=== PATIENT | male | born 1955 | race Caucasian/White ===

== ENCOUNTER 2025-07-02 14:22 | Inpatient (IN) | payer OTHER, MEDICARE ==
[~2025-07-02] VITALS: Ht 182.9 cm; Wt 86.1 kg
[2025-07-02] MEDS: PANTOPRAZOLE 40 MG/10 ML VIAL INJ IV ONE (14:30)
[2025-07-02] MEDS: SODIUM CHLORIDE 0.9% 1,000 ML IV ONE (14:30)
--- NOTE | 2025-07-02 14:41 | ED.PDOC ---
GI ASSESSMENT HPI Comments 57-year-old male presents with a chief complaint of ALOC with GI bleed. Patient last known well time was last week on . Per EMS, patient lives at home with elderly mother and was last seen well last week. Per EMS, patient was visited yesterday by friends was able to speak and answer questions, but was in bed unable to get up. Patient was able to answer 2 questions for EMS, but he "shut down and was not able to respond to questions". Patient is altered i not responding to simple commands. Patient initial vital signs per EMS was heart rate 115 blood pressure 79/55. Patient received fluid resuscitation in route. On arrival his vital signs have improved.. Patient has black tarry stool on his person. EMS states that he has some type of cancer/lymphoma. Daughter at bedside now reports that patient receives immunotherapy. 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 REVIEW OF SYSTEMS: You of system is limited given the patient's altered level of consciousness CONSTITUTIONAL: Denies acute: fever, diaphoresis, chills, HEAD: Denies acute: headache, photophobia Eyes: Denies acute: Double vision, vision loss, eye pain, EARS: Denies acute: tinnitus, hearing loss, ear discharge, ear pain, THROAT: Denies acute: sore throat, swelling, difficulty swallowing , pain with swallowing, change in voice. NECK: Denies acute: neck pain, neck swelling, stiff neck. HEART: Denies acute : chest pain, palpitations, LUNGS: Denies acute: SOB, wheezing, cough, hemoptysis ABDOMEN: Denies acute: abdominal pain, Nausea, Vomiting, diarrhea, melena , hematemesis, hematochezia SKIN: Denies acute: rash, redness, lesions, itchiness. EXTREMITIES: Denies acute: calf pain, numbness, tingling, weakness, denies pain in extremity. Denies acute: Low back pain. Neuro: Denies acute: focal neurological deficit, motor or sensory focal neurological deficit, tremors, seizure like activity, confusion, dizziness, change in mental status, loss of bowel or bladder function, cauda equina like symptoms. : Denies acute: dysuria, hematuria, flank pain, increase in urinary frequency. PSYCH: Denies acute: hallucination, suicidal ideation, homicidal ideation. PHYSICAL EXAM: General: ----[id number]----acute distress, awake and alert. Head: normocephalic, atraumatic. Neck: supple, trachea is midline, no swelling. Throat: Normal phonation. Eyes:, no erythema, no proptosis, no icterus. Mild bilateral purulent discharge Heart: regular rate, regular rhythm, no significant murmur appreciated. Lungs: no apparent respiratory distress, No wheezing, no rhonchi, no crackles. No stridors Clear to auscultation bilaterally. Abdomen: non tender to palpation, non distended, soft, no guarding, no rebound, + bowel sounds. Noted dried up black stool on his abdominal wall Neuro: Altered, very weak, arousable to painful stimuli. Skin: no petechia, no purpura, no cyanosis, non-pale, not jaundice. Lower extremities: --no - Pitting edema no deformity, no focal swelling, no calf TTP. Makes eye contact. moves all four extremities. Face: no apparent facial droop. ED COURSE: DISCLAIMER: This medical document was created using an electronic medical record system with voice recognition software and computerized dictation system. Although this document has been carefully reviewed, there might still be some phonetic and typographical errors. Occasional wrong-word or "sound-alike" substitutions may have occurred due to the inherent limitations of voice recognition software. These areas are purely typographical due to imperfections of the software programs and do not reflect any compromise in the patient's medical care. Please read the chart carefully and recognize, using context, where these substitutions have occurred. Chief Complaint: General Weakness Time Seen by MD: 14:33 Reviewed Notes: Medications, Allergies Allergies: Coded Allergies: NO KNOWN ALLERGIES (Unverified , 07/02/25) Home Meds Reported Medications Hydrocortisone Base (CORTEF) 10 Mg Tab, 10 MG OR DAILY, TAB 07/03/25 Tamsulosin HCl (Tamsulosin Hydrochloride) 0.4 Mg Cap, 0.4 MG PO, CAP 07/03/25 Information Source: Emergency Med Personnel Mode of Arrival: EMS Past Medical History PAST MEDICAL HISTORY: Cancer, Unknown Surgical History: Unknown Family History Family History: Reviewed,noncontributory to illness Social History Smoker: Unknown Alcohol: Unknown Drugs: Unknown Lives In: Home Was a procedure done? Was a procedure done?: No GI differential Dx Differential Diagnosis: Other (DDX include CVA, TGA, cerebellar ischemia/infarct, carotid stenosis, Intracranial mass/infection/bleed, encephalopathy, electrolyte abnormality, thyroid disease, hydrocephalus, hypoglycemia, drug toxicity, cardiac arrhythmia, seizure, infection in the e lderly, Hyperammonemia., kidney failure., sepsis.. As far as the GI bleed, Diverticulitis, colitis, fistula, neoplasm, hemorrhoids, anal fissures, constipation, Crohn's disease, ulcerative colitis) X-Ray, Labs, Meds, VS Vital Signs Date Time Temp Pulse Resp B/P (MAP) Pulse Ox O2 Delivery O2 Flow Rate FiO2 07/02/25 19:50 89 16 96 Room Air* 0 21 07/02/25 18:00 97.8 87 18 83/55 (64) 95 97.8 07/02/25 16:08 97.8 87 25 93/44 (60) 96 97.8 07/02/25 16:08 Room Air* 0 21 07/02/25 16:00 99 07/02/25 14:25 98.7 95 16 93/56 96 98.7 Lab Test 07/02/25 17:45 07/02/25 16:44 07/02/25 15:40 07/02/25 14:38 Range/Units Lactic Acid Level 1.7 2.4 *H 0.4-2.0 mmol/L Troponin I High Sensitivity 557 *H 365 *H 299 *H </=54 ng/L Urine Color Yellow Yellow Urine Clarity Turbid H Clear Urine pH 5.0 5.0-9.0 Urine Specific [place] 1.022 1.001-1.035 Urine Protein 1+ H Negative Urine Ketones 1+ H Negative Urine Blood 1+ H Negative /uL Urine Nitrite Negative Negative Urine Bilirubin 1+ Negative Urine Urobilinogen 2 H Negative mg/dL Urine Leukocyte Esterase 3+ Negative /uL Urine RBC 25 0 - 3 /hpf Urine Microscopic WBC 101 H 0-3 /HPF Urine Squamous Epithelial Cells Few <5 /hpf Urine Bacteria Few H None Seen /hpf Urine Mucus Few None Seen Urine Yeast (Budding) Few None Seen /hpf Urine Glucose Trace Normal mg/dL White Blood Count 14.7 H 4.4-10.8 10^3/uL Red Blood Count 4.76 4.5-5.90 10^6/uL Hemoglobin 14.4 13.5-17.5 g/dL Hematocrit 42.2 41.0-53.0 % Mean Corpuscular Volume 88.7 80.0-100.0 fL Mean Corpuscular Hemoglobin 30.3 28.0-32.0 pg Mean Corpuscular Hemoglobin Concent 34.2 32.0-36.0 g/dL Red Cell Distribution Width 14.9 H 11.8-14.3 % Platelet Count 157 140-450 10^3/uL Mean Platelet Volume 8.0 6.9-10.8 fL Neutrophils (%) (Auto) 87.9 H 37.0-80.0 % Lymphocytes (%) (Auto) 5.0 L 10.0-50.0 % Monocytes (%) (Auto) 5.2 0.0-12.0 % Eosinophils (%) (Auto) 1.2 0.0-7.0 % Basophils (%) (Auto) 0.7 0.0-2.0 % Neutrophils # (Auto) 12.9 H 1.6-8.6 10 ^3/uL Lymphocytes # (Auto) 0.7 0.4-5.4 10 ^3/uL Monocytes # (Auto) 0.8 0-1.3 10 ^3/uL Eosinophils # (Auto) 0.2 0-0.8 10 ^3/uL Basophils # (Auto) 0.1 0-0.2 10 ^3/uL Nucleated Red Blood Cells 0.1 % Prothrombin Time 11.6 9.3-11.8 sec Prothrombin Time INR 1.11 0.9-1.15 Activated Partial Thromboplast Time 35.3 H 24.5-34.5 SEC Sodium Level 140 136-145 mmol/L Potassium Level 4.8 3.5-5.1 mmol/L Chloride Level 105 98-107 mmol/L Carbon Dioxide Level 19 L 20-31 mmol/L Anion Gap 16 H 5-15 Blood Urea Nitrogen 53 H 9-23 mg/dL Creatinine 5.79 H 0.700-1.30 mg/dL Glomerular Filtration Rate Calc 11 >90 mL/min BUN/Creatinine Ratio 9.2 L 10.0-20.0 Serum Glucose 74 74-106 mg/dL Calcium Level 8.4 L 8.7-10.4 mg/dL Total Bilirubin 2.4 H 0.2-1.0 mg/dL Aspartate Amino Transferase (AST) 23 13-40 U/L Alanine Aminotransferase (ALT) 23 7-40 U/L Alkaline Phosphatase 54 46-116 U/L Total Protein 5.8 5.7-8.2 g/dL Albumin 3.7 3.2-4.8 g/dL Lipase 34 12-53 U/L Microbiology Date/Time Source Procedure Growth Status 07/02/25 14:46 Blood Blood Culture - Preliminary NO GROWTH AFTER 48 HOURS OF INCUBATION. Resulted 07/02/25 14:38 Blood Blood Culture - Preliminary NO GROWTH AFTER 48 HOURS OF INCUBATION. Resulted [place] [address] Ph: [phone] DIAGNOSTIC IMAGING Diagnostic Imaging Report : [id number] Signed PATIENT: Brian Fontana ACCT: [id number] UNIT: [id number] : 03/19/1968 LOC: ER ROOM / BED: / AGE / SEX: 57 / M ADM STATUS: REG ER SERVICE 1451 ORDERING PHYSICIAN: RALPH LONGORIA DO PROCEDURE(s): HWOCT - HEAD WITHOUT CONTRAST REASON: [facility] ORDER NUMBER(s): [id number], ACCESSION NUMBER(s): [id number] CLINICAL HISTORY: ams TECHNIQUE: Helical scanning was performed of the head from the skull base to the vertex. Multiplanar reconstructions were performed. This exam was performed according to our departmental dose optimization program. Up-to-date CT equipment and radiation dose reduction techniques are utilized as appropriate. Ctdi 64.8 DLP 1534.8 COMPARISON: None FINDINGS: There is no evidence for acute intracranial hemorrhage, acute ischemic changes, mass, mass effect, or extra-axial fluid collection. There is no hydrocephalus or midline shift. There is no effacement of the cerebral sulci and basal subarachnoid cisterns. The camara-white matter differentiation is well maintained. There is an old right frontal lobe infarct. There is an old right parietal lobe infarct. The imaged paranasal sinuses are clear. IMPRESSION: No acute intracranial abnormality seen. 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 ATED BY: ROSY BARON MD DICTATED DATE/TIME: 07/02/251535 SIGNED BY: ROSY BARON MD SIGNED DATE/TIME: 07/02/25 153 PATIENT: Brian Fontana ACCT: [id number] UNIT: [id number] : 03/19/1968 LOC: ER ROOM / BED: / AGE / SEX: 57 / M ADM STATUS: REG ER SERVICE 34 ORDERING PHYSICIAN: RALPH LONGORIA DO PROCEDURE(s): CXRP - CHEST PORTABLE REASON: Melena, hypotension, ORDER NUMBER(s): [id number], ACCESSION NUMBER(s): [id number] CHEST RADIOGRAPH Indication: Melena, hypotension, Technique: Single frontal view of the chest was obtained COMPARISON: None FINDINGS: Lines and Tubes: None Lungs: Clear Pleura: No effusion. No pneumothorax. Cardiomediastinal contours: Unremarkable Bones: Unremarkable IMPRESSION: No acute disease. ATED BY: JOHNSON BERUMEN MD DICTATED DATE/TIME: 07/02/251520 SIGNED BY: JOHNSON BERUMEN MD SIGNED DATE/TIME: 07/02/25 152 PATIENT: Brian Fontana ACCT: [id number] UNIT: [id number] : 03/19/1968 LOC: ER ROOM / BED: / AGE / SEX: 57 / M ADM STATUS: REG ER SERVICE 34 ORDERING PHYSICIAN: RALPH LONGORIA DO PROCEDURE(s): ABPL - CT AB PEL WO CON-NO ORAL OR IV REASON: Melena, hypotension, ORDER NUMBER(s): [id number], ACCESSION NUMBER(s): [id number] CT CT AB PEL WO CON-NO ORAL OR IV INDICATION: Melena, hypotension, EXAM DATE: 07/02/2025 02:55 PM COMPARISON: None RADIATION DOSE: CTDIvol: 15 mGy, DLP: 975 mGy*cm PROCEDURE: Helical CT images were obtained of the abdomen and pelvis without IV contrast Sagittal and coronal reconstructions are provided. ORAL CONTRAST: None. ADDITIONAL IMAGES / REFORMATS: None All CT scans at this medical facility are performed using dose modulation techniques as appropriate to a performed exam including the following: Automated exposure control was utilized; adjustment of the MA and/or KV according to patient size; and use of iterative reconstruction technique. FINDINGS: LUNG BASE: Bibasilar atelectasis. LIVER: Normal. GALLBLADDER AND BILIARY TREE: No calcified gallstones. Normal caliber wall. No intra- or extrahepatic biliary ductal dilation. PANCREAS: Normal. SPLEEN: Normal. BOWEL: Normal. Normal appendix. ADRENALS: Normal. KIDNEYS AND URETER: Normal. BLADDER: Zavala in bladder. REPRODUCTIVE ORGANS: Normal. LYMPH NODES:No lymphadenopathy. PERITONEUM: No ascites or free air. No other fluid collection. VESSELS: Scattered atherosclerotic calcifications are noted. RETROPERITONEUM: Normal. ABDOMINAL WALL: Small bilateral fat containing inguinal hernia. BONES: Scattered osseous degenerative changes are noted. IMPRESSION: No acute intraabdominal abnormality. No hyperdense luminal material to suggest for bleed in bowel. ATED BY: BONIFACIO ROCHA MD DICTATED DATE/TIME: 07/02/25 154 SIGNED BY: BONIFACIO ROCHA MD SIGNED DATE/TIME: 07/02/25 1549 Time of 1ST Reevaluation: 15:03 Reevaluation 1ST: Unchanged Time of 2ND Reevaluation: 00:00 Reevaluation 2ND: Improved Patient Education/Counseling: Other (PATIENT ALTERED) Family Education/Counseling: Diagnosis, Treatment Comments MDM: patient presented with the above HPI.----altered mental status altered level of consciousness and reported GI bleed in the setting of cancer--workup was initiated. patient was found with the above mentioned diagnosis. the following medications were ordered: please refer to order lists of meds and tests obtained by myself Dr. Longoria. Patient ED course and VS have been stabilized. Patient has been reassessed in the ED and remained in a stable condition. Pertinent incidental findings were discussed with the patient and/or family. Patient/family voices understanding and is agreeable with plan. Patient has been observed in the ED adequate length of time to insure improvement/stability. Escalation of care considered: Consideration of escalation to observation or admission Sepsis workup was initiated. Aspirin was withheld given the setting of GI bleed. Patient was ADMITTED to the medicine team for further evaluation and treatment of their presentation. All the reports of any imaging studies that were ordered by myself were reviewed by myself. Departure 1 Departure Time of Disposition: 14:51 Impression: Primary Impression: Sepsis Additional Impressions: Altered mental status Acute renal failure Elevated troponin UTI (urinary tract infection) GI bleed Leukocytosis Disposition: ADMITTED INPATIENT Admit to: Tele Condition: Guarded Discharged With: Self Critical Care Note Critical Care Time?: Yes (1 hr-critical care time only) I personally scribed for RALPH LONGORIA DO ([email or web address]) on 07/02/25 at 14:41. Electronically submitted by David Montano ([email or web address]). I personally scribed for RALPH LONGORIA DO ([email or web address]) on 07/02/25 at 16:15. Electronically submitted by David Montano ([email or web address]). I personally scribed for RALPH LONGORIA DO ([email or web address]) on 07/02/25 at 17:32. Electronically submitted by David Montano ([email or web address]). I personally scribed for RALPH LONGORIA DO ([email or web address]) on 07/02/25 at 20:27. Electronically submitted by David Montano ([email or web address]). RALPH LONGORIA DO Jul 02, 2025 14:41
[2025-07-02] MEDS: VANCOMYCIN 1GM/200ML PM 200 ML IV ONE (14:45)
[2025-07-02] MEDS: LACTATED RINGER'S 2,350 ML IV ONE (14:45)
[2025-07-02 15:09] LABS: Hematocrit 42.2 % (41.0-53.0); Hemoglobin 14.4 g/dL (13.5-17.5); Mean Corpuscular Hemoglobin 30.3 pg (28.0-32.0); Mean Corpuscular Volume 88.7 fL (80.0-100.0); Nucleated Red Blood Cells % 0.1 %
--- NOTE | 2025-07-02 15:23 | DVH ---
CHEST RADIOGRAPH Indication: Melena, hypotension, Technique: Single frontal view of the chest was obtained COMPARISON: None FINDINGS: Lines and Tubes: None Lungs: Clear Pleura: No effusion. No pneumothorax. Cardiomediastinal contours: Unremarkable Bones: Unremarkable IMPRESSION: No acute disease.
[2025-07-02 15:26] LABS: Lactic Acid w/Reflex 2.4 mmol/L (0.4-2.0)
[2025-07-02 15:29] LABS: Alanine Aminotransferase 23 U/L (7-40); Albumin 3.7 g/dL (3.2-4.8); Alkaline Phosphatase 54 U/L (46-116); Anion Gap 16 (5-15); BUN/Creatinine Ratio 9.2 (10.0-20.0); Chloride 105 mmol/L (98-107); Glucose 74 mg/dL (74-106); Lipase 34 U/L (12-53); Potassium 4.8 mmol/L (3.5-5.1); Sodium 140 mmol/L (136-145); Total Protein 5.8 g/dL (5.7-8.2)
[2025-07-02 15:32] LABS: Bilirubin, Total 2.4 mg/dL (0.2-1.0); Blood Urea Nitrogen 53 mg/dL (9-23); Calcium 8.4 mg/dL (8.7-10.4); Carbon Dioxide 19 mmol/L (20-31)
--- NOTE | 2025-07-02 15:38 | DVH ---
CLINICAL HISTORY: ams TECHNIQUE: Helical scanning was performed of the head from the skull base to the vertex. Multiplanar reconstructions were performed. This exam was performed according to our departmental dose optimizat ion program. Up-to-date CT equipment and radiation dose reduction techniques are utilized as appropri ate. Ctdi 64.8 DLP 1534.8 COMPARISON: None FINDINGS: There is no evidence for acute intracranial hemorrhage, acute ischemic changes, mass, mass effect, or extra-axial fluid collection. There is no hydrocephalus or midline shift. There is no effacement of the cerebral sulci and basal subarachnoid cisterns. The camara-white matter differentiation is well margarita ntained. There is an old right frontal lobe infarct. There is an old right parietal lobe infarct. The imaged paranasal sinuses are clear. IMPRESSION: No acute intracranial abnormality seen. 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
[2025-07-02 15:40] LABS: INR 1.11 (0.9-1.15); Partial Thromboplastin Time 35.3 SEC (24.5-34.5); Prothrombin Time 11.6 sec (9.3-11.8)
--- NOTE | 2025-07-02 15:51 | DVH ---
CT CT AB PEL WO CON-NO ORAL OR IV INDICATION: Melena, hypotension, EXAM DATE: 07/02/2025 02:55 PM COMPARISON: None RADIATION DOSE: CTDIvol: 15 mGy, DLP: 975 mGy*cm PROCEDURE: Helical CT images were obtained of the abdomen and pelvis without IV contrast Sagittal and coronal reconstructions are provided. ORAL CONTRAST: None. ADDITIONAL IMAGES / REFORMATS: None All C T scans at this medical facility are performed using dose modulation techniques as appropriate to a p erformed exam including the following: Automated exposure control was utilized; adjustment of the MA and/or KV according to patient size; and use of iterative reconstruction technique. FINDINGS: LUNG BASE: Bibasilar atelectasis. LIVER: Normal. GALLBLADDER AND BILIARY TREE: No calcified gallstones. Normal caliber wall. No intra- or extrahepatic biliary ductal dilation. PANCREAS: Normal. SPLEEN: Normal. BOWEL: Normal. Normal appendix. ADRENALS: Normal. KIDNEYS AND URETER: Normal. BLADDER: Zavala in bladder. REPRODUCTIVE ORGANS: Normal. LYMPH NODES:No lymphadenopathy. PERITONEUM: No ascites or free air. No other fluid collection. VESSELS: Scattered atherosclerotic calcifications are noted. RETROPERITONEUM: Normal. ABDOMINAL WALL: Small bilateral fat containing inguinal hernia. BONES: Scattered osseous degenerative changes are noted. IMPRESSION: No acute intraabdominal abnormality. No hyperdense luminal material to suggest for bleed in bowel.
[2025-07-02] MEDS ORDERED: CEFEPIME 1GM/ 50ML 50 ML IV SCH (16:00)
[2025-07-02] MEDS: VANCOMYCIN 1GM/250ML KIT 250 ML IV ONE ×2 (16:30→21:41)
[2025-07-02 18:23] LABS: Urine Budding Yeast FEW /hpf (None Seen); Urine Protein, UAD 1+ (Negative)
[2025-07-02] MEDS: CEFEPIME 1GM/ 50ML 50 ML IV SCH (18:39)
[2025-07-02 19:50] VITALS: PULSE 89; RESP 16; O2SAT 96
[2025-07-02] MEDS ORDERED: VANCOMYCIN PER PHARMACY 0 MG IV SCH (20:00)
[2025-07-02] MEDS ORDERED: HYDROcodone-ACET 5/325MG TAB PO PRN (20:00)
[2025-07-02] MEDS ORDERED: ACETAMINOPHEN 325 MG TAB PO PRN (20:00)
[2025-07-02] MEDS ORDERED: NITROGLYCERIN 0.4 MG SL TAB SL PRN (20:00)
[2025-07-02] MEDS ORDERED: ONDANSETRON HCL 4 MG/2 ML VIAL IV PRN (20:00)
[2025-07-02] MEDS ORDERED: MORPHINE SULFATE INJ 2 MG/ml SYRG IV PRN (20:00)
[2025-07-02] MEDS ORDERED: DOCUSATE SOD 100 MG CAP PO PRN (20:00)
--- NOTE | 2025-07-02 21:00 | DVHHP2 ---
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 As reported by daughter, patient lives at home with elderly mother and was seen well last week. Patient was noted to be altered, unable to get up from bed, short down, unable to respond to questions, not responding to simple commands, getting worse that that EMS were called. When EMS arrived on the scene, the patient's heart rate was 115, blood pressure 79/55, and was given IV fluid resuscitation EN route to our facility ED. patient was seen and evaluated in the ED with black tarry stool, laboratory data shows elevated WBC 14.7, platelets 157, sodium 140, potassium 4.8, BUN 53, creatinine 5.79, glucose 74, calcium 8.4, lipase 34, total bilirubin 2.4, troponin 537, lactic acid 2.4 trending down to 1.7, blood pre ssure 83/55 trending up to 94/60, heart rate 86, temperature 97.8 F, O2 saturation 96% on oxygen. 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 Patient was started on IV antibiotic regimen vancomycin, please see medication orders section in the computer. On my assessment, daughter at bedside, patient remains altered, no diaphoresis, no shortness of breaths, no diarrhea, no vomiting, no fever, no chills. Patient was admitted for further evaluation and medical management. Past Medical History Metastatic Melanoma (Brain, Spine, & Lung), Hypocortisolism, Gilbert Syndrome Past Surgical History Denies all surgeries Family History Reviewed, noncontributory to the management of this case. Past Social History The patient lives at home, denies smoking, alcohol or illicit drugs abuse. Review of Systems Constitutional: Yes: Weakness; No: Fever, Chills, Sweats, Malaise, Other Eyes: No: Pain, Vision change, Conjunctivae inflammation, Eyelid inflammation, Other, Redness ENT: No: Ear pain, Ear discharge, Nose pain, Nose discharge, Nose congestion, Mouth pain, Mouth swelling, Throat pain, Throat swelling, Other Respiratory: No: Cough, Dry, Shortness of breath, SOB with excertion, Wheezing, Hemoptysis, Pleuritic Pain, Sputum, Wheezing, Other Cardiovascular: No: Chest Pain, Palpitations, Orthopnea, Paroxysmal Noc. Dyspnea, Edema, Lt Headedness, Other Gastrointestinal: Melena; No: Nausea, Vomiting, Abdominal Pain, Diarrhea, Constipation, Hematochezia, Other Genitourinary: No Dysuria, No Frequency, No Incontinence, No Hematuria, No Retention, No Other Musculoskeletal: No: other, neck pain, shoulder pain, arm pain, back pain, hand pain, leg pain, foot pain Skin: No: Rash, Lesions, Jaundice, Bruising, Other Neurological: Other (Altered level of consciousness); No: Weakness, Numbness, Incoordination, Change in speech, Confusion, Seizures Allergies: Coded Allergies: NO KNOWN ALLERGIES (Unverified , 07/02/25) Medications Current Medications Medications Dose Ordered Sig/Allyson Route Start Time Stop Time Status Last Admin Dose Admin Cefepime HCl 50 ml @ 12.5 mls/hr DAILY@1700 IV 07/02/25 17:00 07/02/25 18:39 12.5 MLS/HR Exam Vital Signs Vital Signs Date Time Temp Pulse Resp B/P (MAP) Pulse Ox O2 Delivery O2 Flow Rate FiO2 07/02/25 18:00 97.8 87 18 83/55 (64) 95 97.8 07/02/25 16:08 Room Air* 0 21 General Appearance: Alert, Cooperative, No acute distress, Other (Oriented x1) HEENT: Atraumatic, PERRLA, EOMI, Mucous membr. moist/pink Respiratory: Normal air movement Cardiovascular: Regular rate, Normal S1, Normal S2, No murmurs Abdominal: Normal bowel sounds, Soft, No tenderness, No hepatospenomegaly, No masses Extremities: No clubbing, No cyanosis, No edema, Normal pulses, No tenderness/swelling Skin: No rashes Neuro: Normal tone, Sensation intact, Cranial nerves 3-12 NL, Reflexes 2+, Other (Generalized weakness) Psych/Mental Status: Mood NL, Other (Altered mental status) Labs/Xrays Labs Test 07/02/25 17:45 07/02/25 16:44 07/02/25 14:38 Range/Units Lactic Acid Level 1.7 0.4-2.0 mmol/L Troponin I High Sensitivity 557 *H </=54 ng/L Urine Color Yellow Yellow Urine Clarity Turbid H Clear Urine pH 5.0 5.0-9.0 Urine Specific [place] 1.022 1.001-1.035 Urine Protein 1+ H Negative Urine Ketones 1+ H Negative Urine Blood 1+ H Negative /uL Urine Nitrite Negative Negative Urine Bilirubin 1+ Negative Urine Urobilinogen 2 H Negative mg/dL Urine Leukocyte Esterase 3+ Negative /uL Urine RBC 25 0 - 3 /hpf Urine Microscopic WBC 101 H 0-3 /HPF Urine Squamous Epithelial Cells Few <5 /hpf Urine Bacteria Few H None Seen /hpf Urine Mucus Few None Seen Urine Yeast (Budding) Few None Seen /hpf Urine Glucose Trace Normal mg/dL White Blood Count 14.7 H 4.4-10.8 10^3/uL Red Blood Count 4.76 4.5-5.90 10^6/uL Hemoglobin 14.4 13.5-17.5 g/dL Hematocrit 42.2 41.0-53.0 % Mean Corpuscular Volume 88.7 80.0-100.0 fL Mean Corpuscular Hemoglobin 30.3 28.0-32.0 pg Mean Corpuscular Hemoglobin Concent 34.2 32.0-36.0 g/dL Red Cell Distribution Width 14.9 H 11.8-14.3 % Platelet Count 157 140-450 10^3/uL Mean Platelet Volume 8.0 6.9-10.8 fL Neutrophils (%) (Auto) 87.9 H 37.0-80.0 % Lymphocytes (%) (Auto) 5.0 L 10.0-50.0 % Monocytes (%) (Auto) 5.2 0.0-12.0 % Eosinophils (%) (Auto) 1.2 0.0-7.0 % Basophils (%) (Auto) 0.7 0.0-2.0 % Neutrophils # (Auto) 12.9 H 1.6-8.6 10 ^3/uL Lymphocytes # (Auto) 0.7 0.4-5.4 10 ^3/uL Monocytes # (Auto) 0.8 0-1.3 10 ^3/uL Eosinophils # (Auto) 0.2 0-0.8 10 ^3/uL Basophils # (Auto) 0.1 0-0.2 10 ^3/uL Nucleated Red Blood Cells 0.1 % Prothrombin Time 11.6 9.3-11.8 sec Prothrombin Time INR 1.11 0.9-1.15 Activated Partial Thromboplast Time 35.3 H 24.5-34.5 SEC Sodium Level 140 136-145 mmol/L Potassium Level 4.8 3.5-5.1 mmol/L Chloride Level 105 98-107 mmol/L Carbon Dioxide Level 19 L 20-31 mmol/L Anion Gap 16 H 5-15 Blood Urea Nitrogen 53 H 9-23 mg/dL Creatinine 5.79 H 0.700-1.30 mg/dL Glomerular Filtration Rate Calc 11 >90 mL/min BUN/Creatinine Ratio 9.2 L 10.0-20.0 Serum Glucose 74 74-106 mg/dL Calcium Level 8.4 L 8.7-10.4 mg/dL Total Bilirubin 2.4 H 0.2-1.0 mg/dL Aspartate Amino Transferase (AST) 23 13-40 U/L Alanine Aminotransferase (ALT) 23 7-40 U/L Alkaline Phosphatase 54 46-116 U/L Total Protein 5.8 5.7-8.2 g/dL Albumin 3.7 3.2-4.8 g/dL Lipase 34 12-53 U/L PATIENT: Brian Fontana ACCT: [id number] UNIT: [id number] : 03/19/1968 LOC: ER ROOM / BED: / AGE / SEX: 57 / M ADM STATUS: REG ER SERVICE [id number] ORDERING PHYSICIAN: RALPH LONGORIA DO PROCEDURE(s): ABPL - CT AB PEL WO CON-NO ORAL OR IV REASON: Melena, hypotension, ORDER NUMBER(s): [id number], ACCESSION NUMBER(s): [id number] CT CT AB PEL WO CON-NO ORAL OR IV INDICATION: Melena, hypotension, EXAM DATE: 07/02/2025 02:55 PM COMPARISON: None RADIATION DOSE: CTDIvol: 15 mGy, DLP: 975 mGy*cm PROCEDURE: Helical CT images were obtained of the abdomen and pelvis without IV contrast Sagittal and coronal reconstructions are provided. ORAL CONTRAST: None. ADDITIONAL IMAGES / REFORMATS: None All CT scans at this medical facility are performed using dose modulation techniques as appropriate to a performed exam including the following: Automated exposure control was utilized; adjustment of the MA and/or KV according to patient size; and use of iterative reconstruction technique. FINDINGS: LUNG BASE: Bibasilar atelectasis. LIVER: Normal. GALLBLADDER AND BILIARY TREE: No calcified gallstones. Normal caliber wall. No intra- or extrahepatic biliary ductal dilation. PANCREAS: Normal. SPLEEN: Normal. BOWEL: Normal. Normal appendix. ADRENALS: Normal. KIDNEYS AND URETER: Normal. BLADDER: Zavala in bladder. REPRODUCTIVE ORGANS: Normal. LYMPH NODES:No lymphadenopathy. PERITONEUM: No ascites or free air. No other fluid collection. VESSELS: Scattered atherosclerotic calcifications are noted. RETROPERITONEUM: Normal. ABDOMINAL WALL: Small bilateral fat containing inguinal hernia. BONES: Scattered osseous degenerative changes are noted. IMPRESSION: No acute intraabdominal abnormality. No hyperdense luminal material to suggest for bleed in bowel. ORDERING PHYSICIAN: RALPH LONGORIA DO PROCEDURE(s): CXRP - CHEST PORTABLE REASON: Melena, hypotension, ORDER NUMBER(s): [id number], ACCESSION NUMBER(s): [id number] CHEST RADIOGRAPH Indication: Melena, hypotension, Technique: Single frontal view of the chest was obtained COMPARISON: None FINDINGS: Lines and Tubes: None Lungs: Clear Pleura: No effusion. No pneumothorax. Cardiomediastinal contours: Unremarkable Bones: Unremarkable IMPRESSION: No acute disease. ORDERING PHYSICIAN: RALPH LONGORIA DO PROCEDURE(s): HWOCT - HEAD WITHOUT CONTRAST REASON: ams ORDER NUMBER(s): [id number], ACCESSION NUMBER(s): [id number] CLINICAL HISTORY: ams TECHNIQUE: Helical scanning was performed of the head from the skull base to the vertex. Multiplanar reconstructions were performed. This exam was performed according to our departmental dose optimization program. Up-to-date CT equipment and radiation dose reduction techniques are utilized as appropriate. Ctdi 64.8 DLP 1534.8 COMPARISON: None FINDINGS: There is no evidence for acute intracranial hemorrhage, acute ischemic changes, mass, mass effect, or extra-axial fluid collection. There is no hydrocephalus or midline shift. There is no effacement of the cerebral sulci and basal subarachnoid cisterns. The camara-white matter differentiation is well maintained. There is an old right frontal lobe infarct. There is an old right parietal lobe infarct. The imaged paranasal sinuses are clear. IMPRESSION: No acute intracranial abnormality seen. 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 SEPSIS Sepsis Screen Date sepsis recognized/suspect: Jul 02, 2025 Time Sepsis recognized/suspect: 1500 Recent Procedure: No On Antibiotic Therapy: Yes Respiratory Rate >20: Yes Heart Rate >90: No Temp<36 C (96.8 F) or >38.3 C: No SBP <90 or MAP <65 mmHG: No New Acute Mental Status Change: Yes Is the patient on CPAP, BIPAP,: No Physician Orders [employer] Tech (07/02/25 ) Stool Occult Blood (07/02/25 14:24) Chest Portable (07/02/25 14:35) Electrocardigram (07/02/25 14:24) Ct Ab Pel Wo Con-No Oral Or Iv (07/02/25 14:35) Accucheck (07/02/25 14:42) Blood Culture (07/02/25 14:42) Notify Md If Map <65 Or Bp<90 (07/02/25 14:42) If Map<65 Start Vasopressor (07/02/25 14:42) Sepsis Reassesment After Fluid (07/02/25 15:42) Head Without Contrast (07/02/25 14:51) Cefepime 1gm/ 50ml (Maxipime 1gm/50ml) (07/02/25 17:00) *[facility] (07/02/25 19:54) Vancomycin Per Pharmacy (07/02/25 20:00) Famotidine Injection (Pepcid Injection) (07/02/25 22:00) Admit (07/02/25 19:54) Allergies (07/02/25 19:54) Code Status (07/02/25 19:54) Sodium Chloride Lock (Saline Lock Ns) (07/02/25 22:00) Oxygen Per Hour (07/02/25 19:54) Hydrocodone-Acet 5/325mg Tab ([place] 5/32 (07/02/25 20:00) Ondansetron Hcl (Zofran) (07/02/25 20:00) Docusate Sodium Capsule (Colace Capsule) (07/02/25 20:00) Fall Risk Precautions In Place QSHIFT (07/02/25 19:54) Complete Blood Count (07/03/25 04:00) Comprehensive Metabolic Panel (07/03/25 04:00) Cardiac Diet-2gna,Lofat,Lochol (07/03/25 Breakfast) Condition: Serious (07/02/25 19:54) Acetaminophen Tablet (Tylenol Tablet) (07/02/25 20:00) Maintain Bed Rest (07/02/25 19:54) Sequential Compression Device (07/02/25 ) Nitroglycerin Sublingual (Ntrostat Subli (07/02/25 20:00) Morphine Sulfate Injection (07/02/25 20:00) Stat Ekg For Chest Pain (07/02/25 19:54) Notify Md Of Changes From Base (07/02/25 19:54) Taper Operator For 24 Hours (07/02/25 19:54) Emergency Dysrhythmia Protocol (07/02/25 19:54) Rhythm Strips Once Every Shift (07/02/25 19:54) Oxygen By Nasal Cannula (07/02/25 19:54) Vital Signs Date Time Temp Pulse Resp B/P (MAP) Pulse Ox O2 Delivery O2 Flow Rate FiO2 07/02/25 18:00 97.8 87 18 83/55 (64) 95 97.8 07/02/25 16:08 97.8 87 25 93/44 (60) 96 97.8 07/02/25 16:08 Room Air* 0 21 07/02/25 16:00 99 07/02/25 14:25 98.7 95 16 93/56 96 98.7 Laboratory Tests Test 07/02/25 14:38 07/02/25 17:45 Lactic Acid Level 2.4 mmol/L (0.4-2.0) *H 1.7 mmol/L (0.4-2.0) White Blood Count 14.7 10^3/uL (4.4-10.8) H Medications Medications Dose Ordered Sig/Allyson Route Start Time Stop Time Status Last Admin Dose Admin Cefepime HCl 50 ml @ 12.5 mls/hr DAILY@1700 IV 07/02/25 17:00 07/02/25 18:39 12.5 MLS/HR Lactated Ringer's 2,350 ml @ 2,350 mls/hr ONCE ONCE IV 07/02/25 14:45 07/02/25 15:44 DC 07/02/25 14:45 2,350 MLS/HR Pantoprazole Sodium 40 mg ONCE ONCE IV 07/02/25 14:30 07/02/25 14:34 DC 07/02/25 14:30 40 MG Sodium Chloride 1,000 ml @ 1,000 mls/hr Q1H ONCE IV 07/02/25 14:30 07/02/25 15:29 DC 07/02/25 14:30 1,000 MLS/HR Vancomycin HCl 250 ml @ 250 mls/hr ONCE ONCE IV 07/02/25 16:00 07/02/25 16:59 DC 07/02/25 16:30 250 MLS/HR Assessment/Plan Assessment/Plan Sepsis, unspecified organism Urinary tract infection Altered mental status Generalized weakness Elevated troponin Gastrointestinal bleed Acute on chronic renal failure Plan 1. Admit to telemetry unit 2. Breathing treatment 3. Pain control management 4. IV antibiotic management 5. Management of fluids and electrolytes 6. Consultation for Nephrology 7. Diagnostic test head CT 8. DVT prophylaxis-on SCDs 9. Repeat labs CBC, CMP in a.m. 10. Home medication reviewed and reconciled 11. Continue with current medical management 12. Treatment plan discussed with patient/daughter and RN. Patient/daughter verbalized understanding. Plan discussed with: Patient, Daughter (At bedside), Other (RN) My Orders Orders - JOSE M ACHARYA DNP Procedure Category Date Status Time *[facility] CONS 07/02/25 Verified -[place] 19:54 Vancomycin Per PHA 07/02/25 Verified Pharmacy 20:00 Famotidine Injection PHA 07/02/25 Verified (Pepcid Injection) 22:00 Admit ADMIT 07/02/25 Verified 19:54 Allergies [facility] 07/02/25 Verified 19:54 Code Status CODE 07/02/25 Verified 19:54 Sodium Chloride Lock PHA 07/02/25 Verified (Saline Lock Ns) 22:00 Oxygen Per Hour RT 07/02/25 Verified 19:54 Hydrocodone-Acet PHA 07/02/25 Verified 5/325mg Tab ([place] 20:00 Ondansetron Hcl PHA 07/02/25 Verified (Zofran) 20:00 Docusate Sodium PHA 07/02/25 Verified Capsule (Colace 20:00 Fall Risk Precautions [facility] 07/02/[address] 19:54 Complete Blood Count LAB 07/03/25 Verified 04:00 Comprehensive LAB 07/03/25 Verified Metabolic Panel 04:00 Cardiac DIET 07/03/25 Verified Diet-2gna,Lofat,Lochol Breakfast Condition: Serious [facility] 07/02/25 Verified 19:54 Acetaminophen Tablet PHA 07/02/25 Verified (Tylenol Tablet) 20:00 Maintain Bed Rest [facility] 07/02/25 Verified 19:54 Sequential [facility] 07/02/25 Verified Compression Device Nitroglycerin [facility] 07/02/25 Verified Sublingual (Ntrostat 20:00 Morphine Sulfate [facility] 07/02/25 Verified Injection 20:00 Stat Ekg For Chest [facility] 07/02/25 Verified Pain 19:54 Notify Md Of Changes [facility] 07/02/25 Verified From Base 19:54 Taper Operator For [facility] 07/02/25 Verified 24 Hours 19:54 Emergency Dysrhythmia [facility] 07/02/25 Verified Protocol 19:54 Rhythm Strips Once [facility] 07/02/25 Verified Every Shift 19:54 Oxygen By Nasal RT 07/02/25 Verified Cannula 19:54 Problem List: (1) Sepsis, unspecified organism (2) Urinary tract infection (3) Altered mental status (4) Elevated troponin (5) Generalized weakness (6) Gastrointestinal bleed (7) Acute on chronic renal failure Date of Service: Jul 02, 2025 Billing Provider: JOSE M ACHARYA DNP Common Visit Codes: [id number] INP/OBS CARE (HIGH) JOSE M ACHARYA DNP Jul 02, 2025 21:00
[2025-07-02] MEDS: SODIUM CHLOR 0.9% PF (SALINE LOCK) 10ML VIAL/SYR IV SCH (21:41)
[2025-07-02] MEDS: FAMOTIDINE (10MG/ML) 2ML VL IV SCH (21:45)
[2025-07-03] VITALS (7 sets, daily range): BP systolic 101–119; BP diastolic 44–72; PULSE 59–78; RESP 16–19; TEMP 97.8–98.2; O2SAT 93–97
[2025-07-03 08:26] LABS: Hematocrit 37.4 % (41.0-53.0); Hemoglobin 13.0 g/dL (13.5-17.5); Mean Corpuscular Hemoglobin 30.8 pg (28.0-32.0); Mean Corpuscular Volume 88.8 fL (80.0-100.0); Nucleated Red Blood Cells % 0.1 %
[2025-07-03 08:35] LABS: Alanine Aminotransferase 17 U/L (7-40); Alkaline Phosphatase 47 U/L (46-116); Anion Gap 13 (5-15); BUN/Creatinine Ratio 11.5 (10.0-20.0); Potassium 3.7 mmol/L (3.5-5.1); Sodium 142 mmol/L (136-145)
[2025-07-03 08:37] LABS: Albumin 3.2 g/dL (3.2-4.8); Bilirubin, Total 1.7 mg/dL (0.2-1.0); Blood Urea Nitrogen 46 mg/dL (9-23); Calcium 8.2 mg/dL (8.7-10.4); Carbon Dioxide 19 mmol/L (20-31); Chloride 110 mmol/L (98-107); Glucose 71 mg/dL (74-106); Total Protein 5.0 g/dL (5.7-8.2)
--- NOTE | 2025-07-03 10:23 | MEDREC ---
[facility] Intervention Section I [facility] Intervention: Deescalate AB based on CS, Duplication of therapy Assessment of apprpriate abx f: UTI (Please consider D/C vancomycin as this is not appropriate treatment for UTI. Cefepime provides enough coverage for UTI) LANDY CHAVIRA [facility] RESIDENT Jul 03, 2025 10:23
--- NOTE | 2025-07-03 10:31 | DVHINCON2 ---
Date Seen: Jul 03, 2025 Referring Physician NADIYA Luna Reason for Consultation Elevated troponin History of Present Illness This is a 70-year-old male patient who presents to the emergency room with chief complaint of altered level of mentation. At the time of assessment, the patient is alert and oriented and able to answer all questions appropriately. He mentions that he does not fully recall how or why he came to the emergency room. Per provider documentation, it was noted that the patient appeared altered at home, prompting the patient's mother to call EMS. The patient was brought to the emergency room for further evaluation. Cardiology has been consulted at t his time for elevated troponin level. He denies any chest pain or cardiac symptoms. Initial twelve lead electrocardiogram reveals normal sinus rhythm without any significant ST segment changes. Initial troponin level of 299ng/L with up trend and current peak level at 557ng/L. Significant past medical history includes metastatic melanoma (with metastasis to the brain, spine, and lungs), and Gilbert syndrome. The patient reports that he is [facility]. Past Medical History Past medical history reviewed. No other significant than mentioned above. Past Surgical History Brain tumor removal Family History: Hypertension G8 MOTHER Family History Family history reviewed. Social History Denies the use of tobacco, alcohol or illicit drugs. Allergies: Coded Allergies: NO KNOWN ALLERGIES (Unverified , 07/02/25) Home Meds Home medications reviewed. Current Medications Current Medications Medications (Trade) Dose Ordered Sig/Allyson Route PRN Reason Start Time Stop Time Status Last Admin Cefepime HCl 50 ml @ 12.5 mls/hr DAILY@1600 IV 07/02/25 16:00 07/02/25 16:00 DC Cefepime HCl 50 ml @ 12.5 mls/hr DAILY@1700 IV 07/02/25 17:00 07/02/25 18:39 Vancomycin HCl 0 ml @ 0 mls/hr UD IV 07/02/25 20:00 Famotidine (Pepcid Injection) 20 mg Q48H IV 07/02/25 22:00 07/02/25 21:45 Sodium Chloride (Saline Lock Ns) 10 ml Q8HR IV 07/02/25 22:00 07/03/25 06:12 Acetaminophen/ Hydrocodone Bitart (Corbin 5/325MG Tab) 1 tab Q4HP PRN PO MODERATE PAIN (4-6 PAIN SCALE) 07/02/25 20:00 Ondansetron HCl (Zofran) 4 mg Q4HP PRN IV NAUSEA / VOMITING 07/02/25 20:00 Docusate Sodium (Colace Capsule) 100 mg BIDPRN PRN PO FOR CONSTIPATION 07/02/25 20:00 Acetaminophen (Tylenol Tablet) 650 mg Q6HP PRN PO PAIN SCALE 1-3 OR TEMP>100.4 07/02/25 20:00 Nitroglycerin (Ntrostat Sublingual) 0.4 mg Q5MINP PRN SL FOR CHEST PAIN 07/02/25 20:00 Morphine Sulfate 2 mg Q30M PRN IV FOR CHEST PAIN 07/02/25 20:00 Review of Systems Constitutional: No symptom reported Ears, Nose, & Throat: No symptom reported Eyes: No symptom reported Neurological: Altered level of mentation Pulmonary/Respiratory: No symptoms reported Cardiovascular: No symptom reported Gastrointestinal: No symptom reported Genitourinary: No symptom reported Musculoskeletal: No symptom reported Skin: No symptom reported Psychiatric: No symptom reported Endocrine: No symptom reported Hematologic/Lymphatic: No symptom reported Vital Signs Vital Signs Date Time Temp Pulse Resp B/P (MAP) Pulse Ox O2 Delivery O2 Flow Rate FiO2 07/03/25 09:47 98.2 76 18 114/44 (67) 97 98.2 07/02/25 19:50 Room Air* 0 21 Physical Exam General Appearance: Cooperative. Well-developed. Well-nourished. No acute distress. Pulmonary/Respiratory: Clear, bilateral breaths sounds. Cardiovascular/Chest: Regular rate and rhythm. Peripheral Pulses: 2+ Radial (R). 2+ Radial (L). 2+ Pedal (R). 2+ Pedal (L) Abdominal Exam: Normal bowel sounds. Ankle Exam: Negative ankle edema Lower extremities: Negative lower extremity edema Neuro/Mental Status: A/OX4, coherent. Thoughts/Psych: Normal thought pattern. Appropriate mood and affect. Good judgment and insight. Appearance: No acute distress. Skin Exam: Sutures to left upper lip. Skin warm and dry Labs/Diagnostic Data Labs Test 07/03/25 07:29 07/02/25 17:45 07/02/25 16:44 07/02/25 14:38 Range/Units White Blood Count 8.6 # 4.4-10.8 10^3/uL Red Blood Count 4.21 L 4.5-5.90 10^6/uL Hemoglobin 13.0 L 13.5-17.5 g/dL Hematocrit 37.4 #L 41.0-53.0 % Mean Corpuscular Volume 88.8 80.0-100.0 fL Mean Corpuscular Hemoglobin 30.8 28.0-32.0 pg Mean Corpuscular Hemoglobin Concent 34.7 32.0-36.0 g/dL Red Cell Distribution Width 14.8 H 11.8-14.3 % Platelet Count 126 L 140-450 10^3/uL Mean Platelet Volume 7.9 6.9-10.8 fL Neutrophils (%) (Auto) 83.0 H 37.0-80.0 % Lymphocytes (%) (Auto) 6.6 L 10.0-50.0 % Monocytes (%) (Auto) 6.4 0.0-12.0 % Eosinophils (%) (Auto) 3.6 0.0-7.0 % Basophils (%) (Auto) 0.4 0.0-2.0 % Neutrophils # (Auto) 7.1 1.6-8.6 10 ^3/uL Lymphocytes # (Auto) 0.6 0.4-5.4 10 ^3/uL Monocytes # (Auto) 0.6 0-1.3 10 ^3/uL Eosinophils # (Auto) 0.3 0-0.8 10 ^3/uL Basophils # (Auto) 0 0-0.2 10 ^3/uL Nucleated Red Blood Cells 0.1 % Sodium Level 142 136-145 mmol/L Potassium Level 3.7 3.5-5.1 mmol/L Chloride Level 110 H 98-107 mmol/L Carbon Dioxide Level 19 L 20-31 mmol/L Anion Gap 13 5-15 Blood Urea Nitrogen 46 H 9-23 mg/dL Creatinine 4.00 H 0.700-1.30 mg/dL Glomerular Filtration Rate Calc 15 >90 mL/min BUN/Creatinine Ratio 11.5 10.0-20.0 Serum Glucose 71 L 74-106 mg/dL Calcium Level 8.2 L 8.7-10.4 mg/dL Total Bilirubin 1.7 H 0.2-1.0 mg/dL Aspartate Amino Transferase (AST) 21 13-40 U/L Alanine Aminotransferase (ALT) 17 7-40 U/L Alkaline Phosphatase 47 46-116 U/L Total Protein 5.0 L 5.7-8.2 g/dL Albumin 3.2 3.2-4.8 g/dL Random Vancomycin Level 18.2 H 5-10 ug/mL Lactic Acid Level 1.7 0.4-2.0 mmol/L Troponin I High Sensitivity 557 *H </=54 ng/L Urine Color Yellow Yellow Urine Clarity Turbid H Clear Urine pH 5.0 5.0-9.0 Urine Specific [place] 1.022 1.001-1.035 Urine Protein 1+ H Negative Urine Ketones 1+ H Negative Urine Blood 1+ H Negative /uL Urine Nitrite Negative Negative Urine Bilirubin 1+ Negative Urine Urobilinogen 2 H Negative mg/dL Urine Leukocyte Esterase 3+ Negative /uL Urine RBC 25 0 - 3 /hpf Urine Microscopic WBC 101 H 0-3 /HPF Urine Squamous Epithelial Cells Few <5 /hpf Urine Bacteria Few H None Seen /hpf Urine Mucus Few None Seen Urine Yeast (Budding) Few None Seen /hpf Urine Glucose Trace Normal mg/dL Prothrombin Time 11.6 9.3-11.8 sec Prothrombin Time INR 1.11 0.9-1.15 Activated Partial Thromboplast Time 35.3 H 24.5-34.5 SEC Lipase 34 12-53 U/L Assessment Sepsis Urinary tract infection NSTEMI, likely type 2 secondary to above Rule out structural heart disease Metastatic melanoma Acute renal failure Borderline thrombocytopenia Plan/Recommendation We will continue with the following plan/recommendations (Dr. Morales): Patient seen and examined at bedside with . We will proceed with obtaining a transthoracic echocardiogram to evaluate cardiac function. The patient denies any cardiac symptoms at time of assessment. Elevated troponin level likely in the setting of sepsis and acute kidney injury. Consider single antiplatelet therapy (with stable platelet count). Continue with cardiac surveillance. In the setting of an unremarkable transthoracic echocardiogram, there is no further inpatient cardiac workup indicated at this time. Thank you for allowing us to care for this patient. Please call with any questions or concerns. Critical care time spent: 44 minutes This medical document was created using an electronic medical record system with voice recognition software and computerized dictation system. Although this document has been carefully reviewed, there might still be some phonetic and typ ographical errors. Occasional wrong-word or ``sound-alike substitutions may have occurred due to the inherent limitations of voice recognition software. These areas are purely typographical due to imperfections of the software programs and do not reflect any compromise in the patient's medical care. Please read the chart carefully and recognize, using context, where these subs titutions have occurred. Plan discussed with: Patient NYHA Physical activity limitations: NA Date of Service: Jul 03, 2025 Billing Provider: SIMEON EDWARDS Cardiology Common Codes: [id number] INP/OBS CARE (High) Cardiology Consultation Codes: [id number] CONSULT <45MIN SIMEON EDWARDS Jul 03, 2025 10:31
[2025-07-03 12:32] LABS: Magnesium 2.1 mg/dL (1.6-2.6)
[2025-07-03 12:33] LABS: Triglycerides 223.0 mg/dL (< 150)
[2025-07-03 12:34] LABS: Cholesterol 165.0 mg/dL (< 200)
[2025-07-03 12:36] LABS: HDL Cholesterol 19.0 mg/dL (40-59)
[2025-07-03] MEDS ORDERED: TAMS1CAP25 PO (14:47)
[2025-07-03] MEDS ORDERED: HYDR10T OR (14:53)
--- NOTE | 2025-07-03 15:42 | DVHPN2 ---
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 Patient is currently awake alert but not fully oriented. Changes from previous H/P or p: No Changes Eyes: No Pain, No Vision change, No Conjunctivae inflammation, No Eyelid inflammation, No Other, No Redness ENT: No Ear pain, No Ear discharge, No Nose pain, No Nose discharge, No Nose congestion, No Mouth pain, No Mouth swelling, No Throat pain, No Throat swelling, No Other Cardiovascular: No Chest Pain, No Palpitations, No Orthopnea, No Paroxysmal Noc. Dyspnea, No Edema, No Lt Headedness, No Other Respiratory: No Cough, No Dry, No Shortness of breath, No SOB with excertion, No Wheezing, No Hemoptysis, No Pleuritic Pain, No Sputum, No Other Gastrointestinal: No Nausea, No Vomiting, No Abdominal Pain, No Diarrhea, No Constipation; Melena; No Hematochezia, No Other Genitourinary: No Dysuria, No Frequency, No Incontinence, No Hematuria, No Retention, No Other Musculoskeletal: No other, No neck pain, No shoulder pain, No arm pain, No back pain, No hand pain, No leg pain, No foot pain Skin: No Rash, No Lesions, No Jaundice, No Bruising, No Other Objective Vitals Vital Signs Date Time Temp Pulse Resp B/P (MAP) Pulse Ox O2 Delivery O2 Flow Rate FiO2 07/03/25 13:00 98.0 59 19 101/64 (76) 95 98.0 07/03/25 11:41 Room Air* 0 21 Intake/Output Intake and Output 07/03/25 07:00 Intake Total 3900.0 ml Balance 3900.0 ml Intake IV Total 3900.0 ml Exam HEENT pupils are reactive Neck is supple CV is S1-S2 regular rate and rhythm Respiratory diminished breath sounds bases GI positive bowel sound Extremity no edema 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 minimally Medications Current Medications Medications Dose Ordered Sig/Allyson Route Start Time Stop Time Status Last Admin Dose Admin Cefepime HCl 50 ml @ 12.5 mls/hr DAILY@1700 IV 07/02/25 17:00 07/02/25 18:39 12.5 MLS/HR Vancomycin HCl 0 ml @ 0 mls/hr UD IV 07/02/25 20:00 Famotidine 20 mg Q48H IV 07/02/25 22:00 07/02/25 21:45 20 MG Sodium Chloride 10 ml Q8HR IV 07/02/25 22:00 07/03/25 13:55 10 ML Acetaminophen/ Hydrocodone Bitart 1 tab Q4HP PRN PO 07/02/25 20:00 Ondansetron HCl 4 mg Q4HP PRN IV 07/02/25 20:00 Docusate Sodium 100 mg BIDPRN PRN PO 07/02/25 20:00 Acetaminophen 650 mg Q6HP PRN PO 07/02/25 20:00 Nitroglycerin 0.4 mg Q5MINP PRN SL 07/02/25 20:00 Morphine Sulfate 2 mg Q30M PRN IV 07/02/25 20:00 Tamsulosin HCl 0.4 mg QPM PO 07/03/25 18:00 UNV Hydrocortisone 10 mg DAILY PO 07/04/25 10:00 UNV Laboratory Results Laboratory Tests 07/03/25 07:29 Chemistry Test 07/03/25 07:29 Albumin 3.2 g/dL (3.2-4.8) Calcium Level 8.2 mg/dL (8.7-10.4) L Magnesium Level 2.1 mg/dL (1.6-2.6) Total Protein 5.0 g/dL (5.7-8.2) L Lipid panel Test 07/03/25 07:29 Cholesterol Level 165 mg/dL (< 200) HDL Cholesterol 19 mg/dL (40-59) L Triglycerides Level 223 mg/dL (< 150) H LFT Test 07/03/25 07:29 Alanine Aminotransferase (ALT) 17 U/L (7-40) Alkaline Phosphatase 47 U/L (46-116) Aspartate Amino Transferase (AST) 21 U/L (13-40) Total Bilirubin 1.7 mg/dL (0.2-1.0) H HgA1c, TSH Test 07/03/25 07:29 Hemoglobin A1c 5.2 % A1C (<5.7) Thyroid Stimulating Hormone (TSH) 9.45 uIU/mL (0.55-4.78) H Urinalysis Test 07/02/25 16:44 Urine Color Yellow (Yellow) Urine Clarity Turbid (Clear) H Urine pH 5.0 (5.0-9.0) Urine Specific [place] 1.022 (1.001-1.035) Urine Protein 1+ (Negative) H Urine Ketones 1+ (Negative) H Urine Blood 1+ /uL (Negative) H Urine Nitrite Negative (Negative) Urine Bilirubin 1+ (Negative) Urine Urobilinogen 2 mg/dL (Negative) H Urine Leukocyte Esterase 3+ /uL (Negative) Urine RBC 25 /hpf (0 - 3) Urine Microscopic WBC 101 /HPF (0-3) H Urine Squamous Epithelial Cells Few /hpf (<5) Urine Bacteria Few /hpf (None Seen) H Urine Mucus Few (None Seen) Urine Yeast (Budding) Few /hpf (None Seen) Urine Glucose Trace mg/dL (Normal) Microbiology Microbiology Date/Time Source Procedure Growth Status 07/02/25 14:46 Blood Blood Culture - Preliminary NO GROWTH AFTER 24 HOURS OF INCUBATION. 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 Acute metabolic/septic encephalopathy 2. Sepsis suspected secondary to UTI 3. Complicated UTI 4. NSTEMI type 2 with elevated troponin 5. Acute kidney injury suspected secondary to vasomotor nephropathy, underlying CKD can not be excluded 6. Leukocytosis likely reactive 7. Lactic acidosis -close tele monitoring IV antibiotics follow up with the cultures, 2D echo cardiology consultation. -physical therapy evaluation and treatment. Plan discussed with: Patient, Other (Patient's bedside RN.) My Orders Orders - RONA BACA MD Procedure Category Date Status Time Tamsulosin PHA 07/03/25 Logged Hydrochloride (Flomax) 18:00 Hydrocortisone Tablet PHA 07/04/25 Logged (Cortef Tablet) 10:00 Date of Service: Jul 03, 2025 Billing Provider: RONA BACA MD Common Visit Codes: [id number] INP/OBS CARE(HIGH) RONA BACA MD Jul 03, 2025 15:42
[2025-07-03] MEDS: TAMSULOSIN HYDROCHLORIDE 0.4 MG CAP PO SCH (16:59)
[2025-07-03] MEDS: HYDROCORTISONE 10 MG TAB PO SCH (16:59)
--- NOTE | 2025-07-03 17:57 | DVHINCON2 ---
Date of service: Jul 03, 2025 Reason for Consultation mikey History of Present Illness 57-year-old male with past medical history of melanoma metastatic to the brain, spine, and lungs, currently on immunotherapy, hypocortisolism, and Gilbert syndrome per HPI presented to [facility] ED with complaint of alte red mental status not feeling patient a week ago he had excision of skin cancer lesions on the upper lip and he was asked to take antibiotics however patient did not take any Denies any complaints Past Surgical History H Allergies: Coded Allergies: NO KNOWN ALLERGIES (Unverified , 07/02/25) Home Meds Reported Medications Hydrocortisone Base (CORTEF) 10 Mg Tab, 10 MG OR DAILY, TAB 07/03/25 Tamsulosin HCl (Tamsulosin Hydrochloride) 0.4 Mg Cap, 0.4 MG PO, CAP 07/03/25 Current Medications Current Medications Medications (Trade) Dose Ordered Sig/Allyson Route PRN Reason Start Time Stop Time Status Last Admin Tamsulosin HCl (Flomax) 0.4 mg QPM PO 07/03/25 18:00 07/03/25 16:59 Hydrocortisone (Cortef Tablet) 10 mg DAILY PO 07/04/25 10:00 07/04/25 10:44 Sodium Chloride 1,000 ml @ 125 mls/hr Q8H IV 07/04/25 12:45 07/04/25 12:45 Heparin Sodium (Porcine) 5,000 units Q12HR SC 07/04/25 22:00 UNV Family History: Hypertension G8 MOTHER Review of Systems As documented in HPI H&P Exam Vital Signs/I&O Vital Sign Date Time Temp Pulse Resp B/P (MAP) Pulse Ox O2 Delivery O2 Flow Rate FiO2 07/04/25 13:00 98.0 61 15 87/60 (69) 94 98.0 07/04/25 08:00 Room Air* 0 21 Intake and Output 07/03/25 07/04/25 19:00 07:00 Output Total 500 ml Balance -500 ml Output Urine Total 500 ml Physical Exam General-not in any distress HEENT-normocephalic, no icterus, no pallor, neck supple Respiratory-fair air entry bilateral, no rhonchi, no wheeze [id number] heard, no murmurs appreciated Abdominal-soft, nontender, nondistended Musculoskeletal-no pedal edema, no calf tenderness Genitourinary-deferred Neuro-awake alert oriented x3, Psychiatric-not agitated, cooperative, Labs/Diagnostic Data Labs/Diagnostic Data Laboratory Tests Test 07/04/25 06:04 07/03/25 07:29 07/02/25 17:45 07/02/25 16:44 Range/Units Sodium Level 142 142 136-145 mmol/L Potassium Level 4.0 3.7 3.5-5.1 mmol/L Chloride Level 111 H 110 H 98-107 mmol/L Carbon Dioxide Level 17 L 19 L 20-31 mmol/L Anion Gap 14 13 5-15 Blood Urea Nitrogen 32 #H 46 H 9-23 mg/dL Creatinine 2.46 H 4.00 H 0.700-1.30 mg/dL Glomerular Filtration Rate Calc 28 15 >90 mL/min BUN/Creatinine Ratio 13.0 11.5 10.0-20.0 Serum Glucose 63 L 71 L 74-106 mg/dL Calcium Level 8.5 L 8.2 L 8.7-10.4 mg/dL Random Vancomycin Level 10.7 H 18.2 H 5-10 ug/mL White Blood Count 8.6 # 4.4-10.8 10^3/uL Red Blood Count 4.21 L 4.5-5.90 10^6/uL Hemoglobin 13.0 L 13.5-17.5 g/dL Hematocrit 37.4 #L 41.0-53.0 % Mean Corpuscular Volume 88.8 80.0-100.0 fL Mean Corpuscular Hemoglobin 30.8 28.0-32.0 pg Mean Corpuscular Hemoglobin Concent 34.7 32.0-36.0 g/dL Red Cell Distribution Width 14.8 H 11.8-14.3 % Platelet Count 126 L 140-450 10^3/uL Mean Platelet Volume 7.9 6.9-10.8 fL Neutrophils (%) (Auto) 83.0 H 37.0-80.0 % Lymphocytes (%) (Auto) 6.6 L 10.0-50.0 % Monocytes (%) (Auto) 6.4 0.0-12.0 % Eosinophils (%) (Auto) 3.6 0.0-7.0 % Basophils (%) (Auto) 0.4 0.0-2.0 % Neutrophils # (Auto) 7.1 1.6-8.6 10 ^3/uL Lymphocytes # (Auto) 0.6 0.4-5.4 10 ^3/uL Monocytes # (Auto) 0.6 0-1.3 10 ^3/uL Eosinophils # (Auto) 0.3 0-0.8 10 ^3/uL Basophils # (Auto) 0 0-0.2 10 ^3/uL Nucleated Red Blood Cells 0.1 % Hemoglobin A1c 5.2 <5.7 % A1C Magnesium Level 2.1 1.6-2.6 mg/dL Total Bilirubin 1.7 H 0.2-1.0 mg/dL Aspartate Amino Transferase (AST) 21 13-40 U/L Alanine Aminotransferase (ALT) 17 7-40 U/L Alkaline Phosphatase 47 46-116 U/L Total Protein 5.0 L 5.7-8.2 g/dL Albumin 3.2 3.2-4.8 g/dL Triglycerides Level 223 H < 150 mg/dL Cholesterol Level 165 < 200 mg/dL LDL Cholesterol 98 < 100 mg/dL HDL Cholesterol 19 L 40-59 mg/dL Thyroid Stimulating Hormone (TSH) 9.45 H 0.55-4.78 uIU/mL Lactic Acid Level 1.7 0.4-2.0 mmol/L Troponin I High Sensitivity 557 *H </=54 ng/L Urine Color Yellow Yellow Urine Clarity Turbid H Clear Urine pH 5.0 5.0-9.0 Urine Specific [place] 1.022 1.001-1.035 Urine Protein 1+ H Negative Urine Ketones 1+ H Negative Urine Blood 1+ H Negative /uL Urine Nitrite Negative Negative Urine Bilirubin 1+ Negative Urine Urobilinogen 2 H Negative mg/dL Urine Leukocyte Esterase 3+ Negative /uL Urine RBC 25 0 - 3 /hpf Urine Microscopic WBC 101 H 0-3 /HPF Urine Squamous Epithelial Cells Few <5 /hpf Urine Bacteria Few H None Seen /hpf Urine Mucus Few None Seen Urine Yeast (Budding) Few None Seen /hpf Urine Glucose Trace Normal mg/dL Test 07/02/25 15:40 07/02/25 14:38 Range/Units Troponin I High Sensitivity 365 *H 299 *H </=54 ng/L White Blood Count 14.7 H 4.4-10.8 10^3/uL Red Blood Count 4.76 4.5-5.90 10^6/uL Hemoglobin 14.4 13.5-17.5 g/dL Hematocrit 42.2 41.0-53.0 % Mean Corpuscular Volume 88.7 80.0-100.0 fL Mean Corpuscular Hemoglobin 30.3 28.0-32.0 pg Mean Corpuscular Hemoglobin Concent 34.2 32.0-36.0 g/dL Red Cell Distribution Width 14.9 H 11.8-14.3 % Platelet Count 157 140-450 10^3/uL Mean Platelet Volume 8.0 6.9-10.8 fL Neutrophils (%) (Auto) 87.9 H 37.0-80.0 % Lymphocytes (%) (Auto) 5.0 L 10.0-50.0 % Monocytes (%) (Auto) 5.2 0.0-12.0 % Eosinophils (%) (Auto) 1.2 0.0-7.0 % Basophils (%) (Auto) 0.7 0.0-2.0 % Neutrophils # (Auto) 12.9 H 1.6-8.6 10 ^3/uL Lymphocytes # (Auto) 0.7 0.4-5.4 10 ^3/uL Monocytes # (Auto) 0.8 0-1.3 10 ^3/uL Eosinophils # (Auto) 0.2 0-0.8 10 ^3/uL Basophils # (Auto) 0.1 0-0.2 10 ^3/uL Nucleated Red Blood Cells 0.1 % Prothrombin Time 11.6 9.3-11.8 sec Prothrombin Time INR 1.11 0.9-1.15 Activated Partial Thromboplast Time 35.3 H 24.5-34.5 SEC Sodium Level 140 136-145 mmol/L Potassium Level 4.8 3.5-5.1 mmol/L Chloride Level 105 98-107 mmol/L Carbon Dioxide Level 19 L 20-31 mmol/L Anion Gap 16 H 5-15 Blood Urea Nitrogen 53 H 9-23 mg/dL Creatinine 5.79 H 0.700-1.30 mg/dL Glomerular Filtration Rate Calc 11 >90 mL/min BUN/Creatinine Ratio 9.2 L 10.0-20.0 Serum Glucose 74 74-106 mg/dL Lactic Acid Level 2.4 *H 0.4-2.0 mmol/L Calcium Level 8.4 L 8.7-10.4 mg/dL Total Bilirubin 2.4 H 0.2-1.0 mg/dL Aspartate Amino Transferase (AST) 23 13-40 U/L Alanine Aminotransferase (ALT) 23 7-40 U/L Alkaline Phosphatase 54 46-116 U/L Total Protein 5.8 5.7-8.2 g/dL Albumin 3.7 3.2-4.8 g/dL Lipase 34 12-53 U/L Assessment Acute kidney injury hemodynamic mediated etiology secondary to hypotension Metastatic melanoma on immunotherapy Rule out sepsis Recommendations IV fluids as ordered NS Renal function better since admission Follow closely Plan discussed with: Patient ESTELA HARRELL MD Jul 03, 2025 17:57
[2025-07-04] VITALS (7 sets, daily range): BP systolic 87–123; BP diastolic 53–88; PULSE 59–68; RESP 15–17; TEMP 97.4–98; O2SAT 93–96
[2025-07-04] MEDS: HYDROCORTISONE 10 MG TAB PO SCH (10:44)
[2025-07-04 11:29] LABS: Chloride 111 mmol/L (98-107); Potassium 4.0 mmol/L (3.5-5.1); Sodium 142 mmol/L (136-145)
[2025-07-04 11:30] LABS: Anion Gap 14 (5-15)
[2025-07-04 11:31] LABS: Calcium 8.5 mg/dL (8.7-10.4); Carbon Dioxide 17 mmol/L (20-31)
[2025-07-04 11:35] LABS: BUN/Creatinine Ratio 13.0 (10.0-20.0)
[2025-07-04 11:39] LABS: Blood Urea Nitrogen 32 mg/dL (9-23); Glucose 63 mg/dL (74-106)
[2025-07-04] MEDS: VANCOMYCIN 750MG KIT 100 ML IV ONE (11:39)
[2025-07-04] MEDS: SODIUM CHLORIDE 0.9% 1,000 ML IV ONE (11:39)
[2025-07-04] MEDS: SODIUM CHLORIDE 0.9% 1,000 ML IV SCH (12:45)
--- NOTE | 2025-07-04 14:00 | DVHSR ---
APPROVED REPORT EXAM: Two-dimensional and M-mode echocardiogram with Doppler and color Doppler. Blood Pressure: 114/44 mmHg INDICATION evaluate cardiac function RISK FACTORS Obesity: Height: 6'0, Weight: 264 DIMENSIONS LVDd5.3 (3.8-5.7cm)LA (2D)4.1 (1.9-4.0cm)Aortic Root3.7 (2.0-3.7cm) LVDs3.7 (2.5-4.0cm)LA (MM) (1.9-4.0cm)Aortic Cusp Exc1.9 (1.5-2.0cm) EF (%) 55.0 (55-70%)Rt. Atrium3.4 (1.9-4.0cm)Asc. Aorta3.7 cm IVSd0.8 (0.7-1.1cm)RV (D)3.9 (1.8-2.4cm) PWd0.8 (0.7-1.1cm) Mitral Valve MitralMitral Stenosis E wave0.62m/sMV Mean GR.mmHg A wave0.78m/sMV Peak GR.mmHg E/A ratio0.82D MVAcm2 DECEL [id number] 1/2 Timems Aortic Valve Aortic ValveAortic Stenosis V10.84m/Larry Mean GR.3mmHg V21.06m/Larry Peak GR.4mmHg LVOT Diameter2.5 (1.8-2.4cm)Doppler AVA3.89cm2 Pulmonic Valve V20.83m/s Tricuspid Valve TR Velocity2.22m/s [id number] Other Information Technically limited study due to patient position. Conclusion Left ventricular is normal size Left ventricular systolic function is low normal Ejection fraction is estimated at 50% Aortic valve is sclerotic without evidence of stenosis Aortic root is mildly dilated There is no pericardial effusion
--- NOTE | 2025-07-04 16:49 | DVHPN2 ---
Subjective Patient is feeling much better, more awake alert today. Start normal saline at 100 mL/hour. Changes from previous H/P or p: No Changes Eyes: No Pain, No Vision change, No Conjunctivae inflammation, No Eyelid inflammation, No Other, No Redness ENT: No Ear pain, No Ear discharge, No Nose pain, No Nose discharge, No Nose congestion, No Mouth pain, No Mouth swelling, No Throat pain, No Throat swelling, No Other Cardiovascular: No Chest Pain, No Palpitations, No Orthopnea, No Paroxysmal Noc. Dyspnea, No Edema, No Lt Headedness, No Other Respiratory: No Cough, No Dry, No Shortness of breath, No SOB with excertion, No Wheezing, No Hemoptysis, No Pleuritic Pain, No Sputum, No Other Gastrointestinal: No Nausea, No Vomiting, No Abdominal Pain, No Diarrhea, No Constipation; Melena; No Hematochezia, No Other Genitourinary: No Dysuria, No Frequency, No Incontinence, No Hematuria, No Retention, No Other Musculoskeletal: No other, No neck pain, No shoulder pain, No arm pain, No back pain, No hand pain, No leg pain, No foot pain Skin: No Rash, No Lesions, No Jaundice, No Bruising, No Other Objective Vitals Vital Signs Date Time Temp Pulse Resp B/P (MAP) Pulse Ox O2 Delivery O2 Flow Rate FiO2 07/04/25 13:00 98.0 61 15 87/60 (69) 94 98.0 07/04/25 08:00 Room Air* 0 21 Intake/Output Intake and Output 07/04/25 07:00 Output Total 500 ml Balance -500 ml Output Urine Total 500 ml Exam HEENT pupils are reactive Neck is supple CV is S1-S2 regular rate and rhythm Respiratory diminished breath sounds bases GI positive bowel sound Extremity no edema [employer] patient is following commands minimally Medications Current Medications Medications Dose Ordered Sig/Allyson Route Start Time Stop Time Status Last Admin Dose Admin Cefepime HCl 50 ml @ 12.5 mls/hr DAILY@1700 IV 07/02/25 17:00 07/03/25 16:59 12.5 MLS/HR Vancomycin HCl 0 ml @ 0 mls/hr UD IV 07/02/25 20:00 Famotidine 20 mg Q48H IV 07/02/25 22:00 07/02/25 21:45 20 MG Sodium Chloride 10 ml Q8HR IV 07/02/25 22:00 07/04/25 14:17 10 ML Acetaminophen/ Hydrocodone Bitart 1 tab Q4HP PRN PO 07/02/25 20:00 Ondansetron HCl 4 mg Q4HP PRN IV 07/02/25 20:00 Docusate Sodium 100 mg BIDPRN PRN PO 07/02/25 20:00 Acetaminophen 650 mg Q6HP PRN PO 07/02/25 20:00 Nitroglycerin 0.4 mg Q5MINP PRN SL 07/02/25 20:00 Morphine Sulfate 2 mg Q30M PRN IV 07/02/25 20:00 Tamsulosin HCl 0.4 mg QPM PO 07/03/25 18:00 07/03/25 16:59 0.4 MG Hydrocortisone 10 mg DAILY PO 07/04/25 10:00 07/04/25 10:44 10 MG Hydrocortisone 5 mg Q24H PO 07/03/25 16:00 07/03/25 16:59 5 MG Sodium Chloride 1,000 ml @ 125 mls/hr Q8H IV 07/04/25 12:45 07/04/25 12:45 125 MLS/HR Laboratory Results Laboratory Tests 07/03/25 07:29 07/04/25 06:04 Chemistry Test 07/04/25 06:04 Calcium Level 8.5 mg/dL (8.7-10.4) L Urinalysis Test 07/02/25 16:44 Urine Color Yellow (Yellow) Urine Clarity Turbid (Clear) H Urine pH 5.0 (5.0-9.0) Urine Specific [place] 1.022 (1.001-1.035) Urine Protein 1+ (Negative) H Urine Ketones 1+ (Negative) H Urine Blood 1+ /uL (Negative) H Urine Nitrite Negative (Negative) Urine Bilirubin 1+ (Negative) Urine Urobilinogen 2 mg/dL (Negative) H Urine Leukocyte Esterase 3+ /uL (Negative) Urine RBC 25 /hpf (0 - 3) Urine Microscopic WBC 101 /HPF (0-3) H Urine Squamous Epithelial Cells Few /hpf (<5) Urine Bacteria Few /hpf (None Seen) H Urine Mucus Few (None Seen) Urine Yeast (Budding) Few /hpf (None Seen) Urine Glucose Trace mg/dL (Normal) Microbiology Microbiology Date/Time Source Procedure Growth Status 07/02/25 14:46 Blood Blood Culture - Preliminary NO GROWTH AFTER 48 HOURS OF INCUBATION. 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 Acute metabolic/septic encephalopathy 2. Sepsis suspected secondary to UTI 3. Complicated UTI 4. NSTEMI type 2 with elevated troponin 5. Acute kidney injury suspected secondary to vasomotor nephropathy, underlying CKD can not be excluded 6. Leukocytosis likely reactive 7. Lactic acidosis 8. Metabolic acidosis -IV fluids -close tele monitoring IV antibiotics follow up with the cultures, 2D echo cardiology consultation. -physical therapy evaluation and treatment. Plan discussed with: Patient My Orders Orders - RONA BACA MD Procedure Category Date Status Time Sodium Chloride 0.9% PHA 07/04/25 In Process 12:45 Date of Service: Jul 04, 2025 Billing Provider: RONA BACA MD Common Visit Codes: [id number] INP/OBS CARE(MOD) RONA BACA MD Jul 04, 2025 16:49
--- NOTE | 2025-07-04 16:54 | DVHPN2 ---
Progress Note Date Seen: Jul 04, 2025 Medical Necessity Reason Pt with a Central, PICC or Fol: Yes The following are medically ne: Martin Catheter Subjective Patient reports: No new complaints, Feels better Review of Systems: HEENT:Normal, CVS:Normal, RESPIRATORY:Normal, GI:Normal, :Normal, MSK:Normal, NEURO:Normal Objective vital signs Vital Sign Date Time Temp Pulse Resp B/P (MAP) Pulse Ox O2 Delivery O2 Flow Rate FiO2 07/04/25 13:00 98.0 61 15 87/60 (69) 94 98.0 07/04/25 08:00 Room Air* 0 21 Total Intake and Output 07/03/25 07/03/25 07/04/25 15:00 23:00 07:00 Output Total 500 ml Balance -500 ml medications Current Medications Medications Dose Ordered Sig/Allyson Route Start Time Stop Time Status Last Admin Dose Admin Cefepime HCl 50 ml @ 12.5 mls/hr DAILY@1700 IV 07/02/25 17:00 07/03/25 16:59 Vancomycin HCl 0 ml @ 0 mls/hr UD IV 07/02/25 20:00 Famotidine 20 mg Q48H IV 07/02/25 22:00 07/02/25 21:45 Sodium Chloride 10 ml Q8HR IV 07/02/25 22:00 07/04/25 14:17 Acetaminophen/ Hydrocodone Bitart 1 tab Q4HP PRN PO 07/02/25 20:00 Ondansetron HCl 4 mg Q4HP PRN IV 07/02/25 20:00 Docusate Sodium 100 mg BIDPRN PRN PO 07/02/25 20:00 Acetaminophen 650 mg Q6HP PRN PO 07/02/25 20:00 Nitroglycerin 0.4 mg Q5MINP PRN SL 07/02/25 20:00 Morphine Sulfate 2 mg Q30M PRN IV 07/02/25 20:00 Tamsulosin HCl 0.4 mg QPM PO 07/03/25 18:00 07/03/25 16:59 Hydrocortisone 10 mg DAILY PO 07/04/25 10:00 07/04/25 10:44 Hydrocortisone 5 mg Q24H PO 07/03/25 16:00 07/03/25 16:59 Sodium Chloride 1,000 ml @ 125 mls/hr Q8H IV 07/04/25 12:45 07/04/25 12:45 Heparin Sodium (Porcine) 5,000 units Q12HR SC 07/04/25 22:00 UNV Examination: GENERAL:Abnormal, SKIN:Abnormal laboratory and microbiology Laboratory Tests 07/04/25 06:04 07/03/25 07:29 Test 07/04/25 06:04 Range/Units Serum Glucose 63 L 74-106 mg/dL Microbiology Date/Time Source Procedure Growth Status 07/02/25 14:46 Blood Blood Culture - Preliminary NO GROWTH AFTER 48 HOURS OF INCUBATION. Resulted Problem List/Assessment/Plan Problem List/Assessment/Plan Acute kidney injury hemodynamic mediated etiology secondary to hypotension Metastatic melanoma on immunotherapy Rule out sepsis Recommendations IV fluids as ordered NS Renal function better since admission Follow closely has martin Plan discussed with: Patient My Orders My Orders Orders - ESTELA HARRELL MD Procedure Category Date Status Time Basic Metabolic Panel LAB 07/05/25 Verified 05:00 Basic Metabolic Panel LAB 07/06/25 Verified 05:00 Basic Metabolic Panel LAB 07/07/25 Verified 05:00 Basic Metabolic Panel LAB 07/08/25 Verified 05:00 Basic Metabolic Panel LAB 07/09/25 Verified 05:00 Basic Metabolic Panel LAB 07/10/25 Verified 05:00 Basic Metabolic Panel LAB 07/11/25 Verified 05:00 ESTELA HARRELL MD Jul 04, 2025 16:54
[2025-07-04] MEDS: HEPARIN SODIUM (PORCINE) 5000 UNITS/ML 1ML VIAL SC SCH (21:08)
[2025-07-05] VITALS (7 sets, daily range): BP systolic 116–134; BP diastolic 80–85; PULSE 55–76; RESP 16–18; TEMP 97.5–98.5; O2SAT 94–97
[2025-07-05 08:16] LABS: Anion Gap 10 (5-15); Carbon Dioxide 21 mmol/L (20-31); Potassium 3.9 mmol/L (3.5-5.1); Sodium 144 mmol/L (136-145)
[2025-07-05 08:22] LABS: BUN/Creatinine Ratio 17.6 (10.0-20.0); Calcium 8.4 mg/dL (8.7-10.4); Chloride 113 mmol/L (98-107)
[2025-07-05 08:23] LABS: Blood Urea Nitrogen 26 mg/dL (9-23); Glucose 73 mg/dL (74-106)
--- NOTE | 2025-07-05 10:04 | DVHPN2 ---
Progress Note Date Seen: Jul 05, 2025 Medical Necessity Reason Pt with a Central, PICC or Fol: Yes The following are medically ne: Z[place] Catheter Subjective Patient reports: Other (weak) Review of Systems: HEENT:Normal, CVS:Normal, RESPIRATORY:Normal, GI:Normal, :Normal, MSK:Normal, NEURO:Normal Objective vital signs Vital Sign Date Time Temp Pulse Resp B/P (MAP) Pulse Ox O2 Delivery O2 Flow Rate FiO2 07/05/25 08:25 98.5 56 16 128/85 (99) 96 98.5 07/05/25 08:00 Room Air* 0 21 Total Intake and Output 07/04/25 07/04/25 07/05/25 15:00 23:00 07:00 Intake Total 100 ml 575 ml Balance 100 ml 575 ml medications Current Medications Medications Dose Ordered Sig/Allyson Route Start Time Stop Time Status Last Admin Dose Admin Cefepime HCl 50 ml @ 12.5 mls/hr DAILY@1700 IV 07/02/25 17:00 07/04/25 17:28 12.5 MLS/HR Vancomycin HCl 0 ml @ 0 mls/hr UD IV 07/02/25 20:00 Famotidine 20 mg Q48H IV 07/02/25 22:00 07/04/25 21:02 20 MG Sodium Chloride 10 ml Q8HR IV 07/02/25 22:00 07/05/25 05:55 10 ML Acetaminophen/ Hydrocodone Bitart 1 tab Q4HP PRN PO 07/02/25 20:00 Ondansetron HCl 4 mg Q4HP PRN IV 07/02/25 20:00 Docusate Sodium 100 mg BIDPRN PRN PO 07/02/25 20:00 Acetaminophen 650 mg Q6HP PRN PO 07/02/25 20:00 Nitroglycerin 0.4 mg Q5MINP PRN SL 07/02/25 20:00 Morphine Sulfate 2 mg Q30M PRN IV 07/02/25 20:00 Tamsulosin HCl 0.4 mg QPM PO 07/03/25 18:00 07/04/25 17:40 0.4 MG Hydrocortisone 10 mg DAILY PO 07/04/25 10:00 07/04/25 10:44 10 MG Hydrocortisone 5 mg Q24H PO 07/03/25 16:00 07/04/25 17:28 5 MG Sodium Chloride 1,000 ml @ 125 mls/hr Q8H IV 07/04/25 12:45 07/04/25 23:21 125 MLS/HR Heparin Sodium (Porcine) 5,000 units Q12HR SC 07/04/25 22:00 07/04/25 21:08 5,000 UNITS laboratory and microbiology Laboratory Tests 07/05/25 06:28 07/03/25 07:29 Test 07/05/25 06:28 Range/Units Serum Glucose 73 L 74-106 mg/dL Microbiology Date/Time Source Procedure Growth Status 07/02/25 14:46 Blood Blood Culture - Preliminary NO GROWTH AFTER 48 HOURS OF INCUBATION. Resulted Problem List/Assessment/Plan Problem List/Assessment/Plan Acute kidney injury hemodynamic mediated etiology secondary to hypotension Metastatic melanoma on immunotherapy Rule out sepsis Recommendations IV fluids as ordered NS Renal function better since admission Follow closely ct abd-no hydro Plan discussed with: Patient My Orders My Orders Orders - ESTELA HARRELL MD Procedure Category Date Status Time Basic Metabolic Panel LAB 07/06/25 Verified 05:00 Basic Metabolic Panel LAB 07/07/25 Verified 05:00 Basic Metabolic Panel LAB 07/08/25 Verified 05:00 Basic Metabolic Panel LAB 07/09/25 Verified 05:00 Basic Metabolic Panel LAB 07/10/25 Verified 05:00 Basic Metabolic Panel LAB 07/11/25 Verified 05:00 ESTELA HARRELL MD Jul 05, 2025 10:04
[2025-07-05] MEDS ORDERED: CEFD300C2 PO (15:49)
--- NOTE | 2025-07-05 15:50 | DVHDS2 ---
Discharge Summary Date of Admission Jul 02, 2025 at 19:54 Date of Discharge: Jul 05, 2025 Labs/Diagnostic Data: Laboratory Results Test 07/05/25 06:28 07/03/25 07:29 07/02/25 17:45 07/02/25 16:44 Sodium Level 144 mmol/L (136-145) Potassium Level 3.9 mmol/L (3.5-5.1) Chloride Level 113 mmol/L (98-107) Carbon Dioxide Level 21 mmol/L (20-31) Anion Gap 10 (5-15) Blood Urea Nitrogen 26 mg/dL (9-23) Creatinine 1.48 mg/dL (0.700-1.30) Glomerular Filtration Rate Calc 51 mL/min (>90) BUN/Creatinine Ratio 17.6 (10.0-20.0) Serum Glucose 73 mg/dL (74-106) Calcium Level 8.4 mg/dL (8.7-10.4) Random Vancomycin Level 10.4 ug/mL (5-10) White Blood Count 8.6 10^3/uL (4.4-10.8) Red Blood Count 4.21 10^6/uL (4.5-5.90) Hemoglobin 13.0 g/dL (13.5-17.5) Hematocrit 37.4 % (41.0-53.0) Mean Corpuscular Volume 88.8 fL (80.0-100.0) Mean Corpuscular Hemoglobin 30.8 pg (28.0-32.0) Mean Corpuscular Hemoglobin Concent 34.7 g/dL (32.0-36.0) Red Cell Distribution Width 14.8 % (11.8-14.3) Platelet Count 126 10^3/uL (140-450) Mean Platelet Volume 7.9 fL (6.9-10.8) Neutrophils (%) (Auto) 83.0 % (37.0-80.0) Lymphocytes (%) (Auto) 6.6 % (10.0-50.0) Monocytes (%) (Auto) 6.4 % (0.0-12.0) Eosinophils (%) (Auto) 3.6 % (0.0-7.0) Basophils (%) (Auto) 0.4 % (0.0-2.0) Neutrophils # (Auto) 7.1 10 ^3/uL (1.6-8.6) Lymphocytes # (Auto) 0.6 10 ^3/uL (0.4-5.4) Monocytes # (Auto) 0.6 10 ^3/uL (0-1.3) Eosinophils # (Auto) 0.3 10 ^3/uL (0-0.8) Basophils # (Auto) 0 10 ^3/uL (0-0.2) Nucleated Red Blood Cells 0.1 % Hemoglobin A1c 5.2 % A1C (<5.7) Magnesium Level 2.1 mg/dL (1.6-2.6) Total Bilirubin 1.7 mg/dL (0.2-1.0) Aspartate Amino Transferase (AST) 21 U/L (13-40) Alanine Aminotransferase (ALT) 17 U/L (7-40) Alkaline Phosphatase 47 U/L (46-116) Total Protein 5.0 g/dL (5.7-8.2) Albumin 3.2 g/dL (3.2-4.8) Triglycerides Level 223 mg/dL (< 150) Cholesterol Level 165 mg/dL (< 200) LDL Cholesterol 98 mg/dL (< 100) HDL Cholesterol 19 mg/dL (40-59) Thyroid Stimulating Hormone (TSH) 9.45 uIU/mL (0.55-4.78) Lactic Acid Level 1.7 mmol/L (0.4-2.0) Troponin I High Sensitivity 557 ng/L (</=54) Urine Color Yellow (Yellow) Urine Clarity Turbid (Clear) Urine pH 5.0 (5.0-9.0) Urine Specific [place] 1.022 (1.001-1.035) Urine Protein 1+ (Negative) Urine Ketones 1+ (Negative) Urine Blood 1+ /uL (Negative) Urine Nitrite Negative (Negative) Urine Bilirubin 1+ (Negative) Urine Urobilinogen 2 mg/dL (Negative) Urine Leukocyte Esterase 3+ /uL (Negative) Urine RBC 25 /hpf (0 - 3) Urine Microscopic WBC 101 /HPF (0-3) Urine Squamous Epithelial Cells Few /hpf (<5) Urine Bacteria Few /hpf (None Seen) Urine Mucus Few (None Seen) Urine Yeast (Budding) Few /hpf (None Seen) Urine Glucose Trace mg/dL (Normal) Test 07/02/25 14:38 Prothrombin Time 11.6 sec (9.3-11.8) Prothrombin Time INR 1.11 (0.9-1.15) Activated Partial Thromboplast Time 35.3 SEC (24.5-34.5) Lipase 34 U/L (12-53) Other Laboratory Tests 07/05/25 06:28 07/03/25 07:29 Brief Hx & Hospital Course: 70-year-old male with a known history of 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 antibiotics upon discharge. Patient also has a elevated troponin which was thought to secondary to NSTEMI type 2 no intervention as per Cardiology. Patient's has a acute kidney injury suspected secondary to vasomotor nephropathy which is currently improving. Patient does have known history of skin melanoma with a high behind ears, metastatic brain tumor status post surgical removal status post spot radiation, metastatic lung cancer status post immunotherapy every three weeks. Patient needs to follow up with the PCP as well as Hematology Oncology upon discharge. 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 Acute metabolic/septic encephalopathy 2. Sepsis suspected secondary to UTI 3. Complicated UTI 4. NSTEMI type 2 with elevated troponin 5. Acute kidney injury suspected secondary to vasomotor nephropathy, underlying CKD can not be excluded 6. Leukocytosis likely reactive 7. Lactic acidosis 8. Metabolic acidosis Discharge Disposition: Home SNF Discharge Will this Physician continue t: No Discharge Instruct/Medications Diet: Cardiac 2g Na,low cholest Activity: No Restrictions, As Tolerated Follow Up/Referral: Follow up with the PCP in 1-2 weeks Follow up with the Hematology Oncology in 1-2 weeks Medications: Cefdinir as prescribed. Scheduled Cefdinir (Cefdinir), 1 CAP PO BID Hydrocortisone Base (Cortef), 10 MG OR DAILY, (Reported) Miscellaneous Medications Tamsulosin HCl (Tamsulosin Hydrochloride), 0.4 MG PO, (Reported) Discharge Statement: "Patient was advised to return to the ER or call 911 if any headaches, dizziness, shortness of breath, chest pain, abdominal pain, bleeding, fevers, or worsening of medical condition. Patient was counseled about treatment plan, medications, possible side effects, patientverbalized understanding. All questions were answered to the best of my ability. 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 Acute metabolic/septic encephalopathy 2. Sepsis suspected secondary to UTI 3. Complicated UTI 4. NSTEMI type 2 with elevated troponin 5. Acute kidney injury suspected secondary to vasomotor nephropathy, underlying CKD can not be excluded 6. Leukocytosis likely reactive 7. Lactic acidosis 8. Metabolic acidosis Date of Service: Jul 05, 2025 Billing Provider: RONA BACA MD Common Visit Codes: 30799-NGR/OBS DISCH DAY >30min RONA BACA MD Jul 05, 2025 15:50
== END 2025-07-05 17:30 | disposition home or self-care (01) | DRG 871 ==
LOC: EDBD 14:22 → EDUNIT# 14:22 → ER 14:22 → OVERFLOW 19:54 → TELE-WESTW 07-03 11:34
PROVIDERS: ADMIT Hospitalist; ATTEND Hospitalist
DX: A41.9 Sepsis, unspecified organism (principal); G93.41 Metabolic encephalopathy; I21.A1 Myocardial infarction type 2; N17.0 Acute kidney failure with tubular necrosis; N39.0 Urinary tract infection, site not specified; E87.20 Acidosis, unspecified; K92.2 Gastrointestinal hemorrhage, unspecified; D69.6 Thrombocytopenia, unspecified; E80.4 Gilbert syndrome; N18.9 Chronic kidney disease, unspecified; Z82.49 Family history of ischemic heart disease and other diseases of the circulatory system; Z85.820 Personal history of malignant melanoma of skin; Z86.73 Personal history of transient ischemic attack (TIA), and cerebral infarction without residual deficits
CPT/HCPCS: 36415; 70450; 71045; 74176; 80048; 80053; 80061; 80202; 81001; 82565; 83036; 83605; 83690; 83735; 84443; 84484; 85025; 85610; 85730; 86850; 86900; 86901; 87040; 93306; 96365; 96375; 97163; G0378; J2470; J3490

== ENCOUNTER 2025-07-08 12:01 | Emergency (ER) | payer OTHER, MEDICARE ==
[~2025-07-08] VITALS: Ht 182.9 cm; Wt 86.1 kg
[~2025-07-08 12:01] MED LIST: CEFD300C2 PO; HYDR10T OR; TAMS1CAP25 PO
[2025-07-08 12:04] VITALS: BP 110/79; RESP 20; TEMP 97.7; O2SAT 98
[2025-07-08 12:26] VITALS: PULSE 74
--- NOTE | 2025-07-08 12:26 | ED.PDOC ---
History of Present Illness HPI Comments 70-year-old male brought by paramedics because of generalized weakness abdominal discomfort for the past few weeks. Patient has been seen in this ER for similar condition. Patient blood pressure when paramedics arrived systolic was 89. He was given 500 mL bolus for which blood pressure tanvi to 100. He does have a history of liver cancer bone cancer. Unable to get a good history from the patient. Chief Complaint: General Weakness Time Seen by MD: 12:17 Reviewed Notes: Nurses Notes, Medications, Allergies Allergies: Coded Allergies: NO KNOWN ALLERGIES (Unverified , 07/02/25) Home Meds Active Scripts Cefdinir (Cefdinir) 300 Mg Cap, 1 CAP PO BID for 5 Days, #14 CAP Prov:RONA BACA MD 07/05/25 Reported Medications Hydrocortisone Base (CORTEF) 10 Mg Tab, 10 MG OR DAILY, TAB 07/03/25 Tamsulosin HCl (Tamsulosin Hydrochloride) 0.4 Mg Cap, 0.4 MG PO, CAP 07/03/25 Information Source: Patient, Emergency Med Personnel Mode of Arrival: EMS Severity: Moderate Timing: Days Duration: Since onset Past Medical History PAST MEDICAL HISTORY: Cancer, Unknown Surgical History: Unknown Family History Family History: Reviewed,noncontributory to illness Social History Smoker: Unknown Alcohol: Unknown Drugs: Unknown Lives In: Home Constitutional: reports: weakness; denies: chills, diaphoresis, fatigue, fever, malaise, sweats, others EENTM: denies: blurred vision, double vision, ear bleeding, ear discharge, ear drainage, ear pain, ear ringing, eye pain, eye redness, hearing loss, mouth pain, mouth swelling, nasal discharge, nose bleeding, nose congestion, nose pain, photophobia, tearing, throat pain, throat swelling, voice changes, others Respiratory: denies: cough, hemoptysis, orthopnea, SOB at rest, shortness of breath, SOB with excertion, stridor, wheezing, others Cardiovascular: denies: chest pain, dizzy spells, diaphoresis, Dyspnea on exertion, edema, irregular heart beat, left arm pain, lightheadedness, palpitations, PND, syncope, others Gastrointestinal: denies: abdomen distended, abdominal pain, blood streaked bowels, constipated, diarrhea, dysphagia, difficulty swallowing, hematemesis, melena, nausea, poor appetite, poor fluid intake, rectal bleeding, rectal pain, vomiting, others Genitourinary: denies: burning, dysuria, flank pain, frequency, hematuria, incontinence, penile discharge, penile sore, pain, testicle pain, testicle swelling, urgency, others Neurological: denies: dizziness, fainting, headache, left sided numbness, left sided weakness, numbness, paresthesia, pre-existing deficit, right sided numbness, right sided weakness, seizure, speech problems, tingling, tremors, weakness, others Musculoskeletal: denies: back pain, gout, joint pain, joint swelling, muscle pain, muscle stiffness, neck pain, others Integumetry: denies: bruises, change in color, change in hair/nails, dryness, laceration, lesions, lumps, rash, wounds, others Allergic/Immunocompromised: denies: Difficulty Healing, Frequent Infections, Hives, Itching, others Hematologic/Lymphatic: denies: anemia, blood clots, easy bleeding, easy bruising, swollen glands, others Endocrine: denies: excessive hunger, excessive sweating, excessive thirst, excessive urination, flushing, intolerance to cold, intolerance to heat, unexplained weight gain, unexplained weight loss, others Psychiatric: denies: anxiety, bipolar disorder, depression, hopeless, panic disorder, schizophrenia, sleepless, suicidal, others Physical Exam General Appearance: Moderate Distress HEENT: Normal ENT Inspection, Pharynx Normal, TMs Normal Neck: Full Range of Motion, Non-Tender, Normal, Normal Inspection Respiratory: Chest Non-Tender, Lungs Clear, No Accessory Muscle Use, No Respiratory Distress, Normal Breath Sounds Cardiovascular: No Edema, No JVD, No Murmur, No Gallop, Normal Peripheral Pulses, Regular Rate/Rhythm Breast Exam: Deferred Gastrointestinal: No Organomegaly, Non Tender, No Pulsatile Mass, Normal Bowel Sounds, Soft Genitalia: Deferred Pelvic: Deferred Rectal: Deferred Extremities: No calf tenderness, No pedal edema Musculoskeletal : Apperance: Normal Neurologic: Alert, customer care associate II-XII nml as Tested, No Motor Deficits, Normal Affect, Normal Mood, No Sensory Deficits Cerebellar Function: Normal, NOT DONE Reflexes: Normal, NOT DONE Skin: Dry, Normal Color, Warm Peripheral Pulses: 3+ Radial (R), 3+ Radial (L) Lymphatic: No Adenopathy Was a procedure done? Was a procedure done?: No EKG EKG : Pulse Rate (adult): 74 Cardiac Rhythm: NSR Differential Dx Considerations may include: Anemia Electrolyte imbalance X-Ray, Labs, Meds, VS Vital Signs Date Time Temp Pulse Resp B/P (MAP) Pulse Ox O2 Delivery O2 Flow Rate FiO2 07/08/25 12:07 74 Patient alert. Complaining of generalized weakness. Answering questions very slowly. Vitals stable. Reviewed his previous visit. Establish intravenous access. Was given fluids. Explained to the patient. Continue monitoring. Time of 1ST Reevaluation: 12:24 Reevaluation 1ST: Unchanged Patient Education/Counseling: Diagnosis, Treatment, Prognosis Family Education/Counseling: No Family Present SEPSIS Sepsis Screen Physician Orders Electrocardigram (07/08/25 12:11) Complete Blood Count (07/08/25 12:18) Comprehensive Metabolic Panel (07/08/25 12:18) PTPTT (07/08/25 12:18) Urinalysis (07/08/25 12:18) Chest Portable (07/08/25 12:18) Accucheck (07/08/25 12:18) Blood Culture (07/08/25 12:18) Lactic Acid W/ Reflex Order (07/08/25 14:00) Lactic Acid W/ Reflex Order (07/08/25 16:00) Cefepime 2 Gm Q8hr (07/08/25 14:00) Notify Md If Map <65 Or Bp<90 (07/08/25 12:18) If Map<65 Start Vasopressor (07/08/25 12:18) Sepsis Reassesment After Fluid (07/08/25 13:18) 1 Liter Bolus Of 0.9% Ns (07/08/25 12:30) 0.9% Ns 30mls/Kg (07/08/25 12:30) Vital Signs Date Time Temp Pulse Resp B/P (MAP) Pulse Ox O2 Delivery O2 Flow Rate FiO2 07/08/25 12:07 74 Departure 1 Departure Time of Disposition: 12:25 Impression: Primary Impression: Generalized weakness Additional Impression: Dehydration Disposition: ADMITTED INPATIENT Admit to: Med Surg Condition: Guarded Critical Care Note Critical Care Time?: No Stability Stability form required: No Heart Score Heart Score: Heart Score Response (Comments) Value History Slightly Suspicious 0 EKG Normal 0 Age >65 2 Risk Factors >3 or Hx ASHD 2 Troponin Normal limit 0 Total 4 SARAHI GEE MD Jul 08, 2025 12:26
[2025-07-08] MEDS ORDERED: SODIUM CHLORIDE 0.9% 1,000 ML IV ONE (12:30)
--- NOTE | 2025-07-08 12:46 | DVH ---
INDICATION: sob TECHNIQUE: Frontal view of the chest. COMPARISON: XY CHEST PORTABLE on DOS: 07/02/25 FINDINGS: . The heart and mediastinal contours are grossly unremarkable. There is no evidence of pleural disea se. The lungs are clear. The bony structures of the chest are intact without fracture. IMPRESSION: 1. No evidence of acute disease.
[2025-07-08] MEDS: SODIUM CHLORIDE 0.9% 1,000 ML IV ONE (12:47)
[2025-07-08 13:24] LABS: Hematocrit 43.7 % (41.0-53.0); Hemoglobin 15.1 g/dL (13.5-17.5); Mean Corpuscular Hemoglobin 30.4 pg (28.0-32.0); Mean Corpuscular Volume 87.7 fL (80.0-100.0); Nucleated Red Blood Cells % 0.4 %
[2025-07-08 13:37] LABS: INR 1.08 (0.9-1.15); Partial Thromboplastin Time 26.5 SEC (24.5-34.5); Prothrombin Time 11.4 sec (9.3-11.8)
[2025-07-08 13:39] LABS: Alanine Aminotransferase 15 U/L (7-40); Albumin 4.2 g/dL (3.2-4.8); Alkaline Phosphatase 56 U/L (46-116); Anion Gap 18 (5-15); BUN/Creatinine Ratio 11.5 (10.0-20.0); Bilirubin, Total 1.1 mg/dL (0.2-1.0); Blood Urea Nitrogen 12 mg/dL (9-23); Calcium 8.7 mg/dL (8.7-10.4); Carbon Dioxide 19 mmol/L (20-31); Chloride 105 mmol/L (98-107); Glucose 70 mg/dL (74-106); Potassium 3.8 mmol/L (3.5-5.1); Sodium 142 mmol/L (136-145); Total Protein 6.0 g/dL (5.7-8.2)
[2025-07-08] MEDS ORDERED: CEFEPIME 1GM/ 50ML 50 ML IV SCH (14:00)
--- NOTE | 2025-07-09 02:23 | ECG ---
[facility] Test Date: 2025-07-08 Test Time: 12:07:59 Pat Name: MODESTO DUMONT Department: Room: Gender: M Sole Tier: : 1955 Requested By: EMERGENCY EMERGENCY Order Number: [id number] Reading MD: Juan Pablo Rivera Measurements Intervals [place] Rate: 74 P: 55 SD: 189 QRS: 1 QRSD: 97 T: 31 QT: 392 QTc: 435 Interpretive Statements Sinus rhythm Ventricular premature complex Abnormal R-wave progression, early transition Electronically Signed On 07-09-2025 22:58:25 PDT by Juan Pablo Rivera Please click the below link to view image of tracing.
== END 2025-07-08 14:25 | disposition left against medical advice (07) ==
LOC: ER 12:01 → EDBD 12:01 → ER 14:25
DX: R53.1 Weakness (principal); E86.0 Dehydration; R06.02 Shortness of breath; Z79.899 Other long term (current) drug therapy
CPT/HCPCS: 36415; 71045; 80053; 83605; 85025; 85610; 85730; 87040; 93005; 96360; 99285; J7030